=== PATIENT | female | born 1980 | race Caucasian/White ===

== ENCOUNTER 2023-10-08 07:44 | Outpatient (OUT) | payer OTHER, SELFPAY ==
[2023-10-08 08:25] LABS: Basophils Absolute Auto 0.1 10^3/uL (0.0-0.1); Basophils Percent Auto 1.4 % (0.2-2.0); Eosinophils Absolute Auto 0.3 10^3/uL (0.0-0.7); Eosinophils Percent Auto 3.3 % (0.9-7.0); Hematocrit 40.6 % (36.0-48.0); Hemoglobin 14.2 g/dL (12.0-16.0); Immature Granulocytes Abs Auto 0.03 10^3/uL (0.00-0.03); Immature Granulocytes Pct Auto 0.3 % (0.0-0.5); Lymphocytes Absolute Auto 2.4 10^3/uL (1.2-3.8); Lymphocytes Percent Auto 25.7 % (20.5-60.0); Mean Corpuscular Hemoglobin 31.7 pg (26.7-34.0); Mean Corpuscular Volume 90.6 fL (81.0-99.0); Mean Platelet Volume 8.6 fL (9.5-13.5); Monocytes Absolute Auto 0.7 10^3/uL (0.3-0.8); Neutrophils Absolute Auto 5.8 10^3/uL (1.4-6.5); Neutrophils Percent Auto 62.3 % (43.0-75.0); Platelet Count 307 10^3/uL (150-450); Red Blood Count 4.48 10^6/uL (4.20-5.40); Red Cell Distribution Width 11.4 % (11.0-15.0); White Blood Count 9.3 10^3/uL (4.0-11.0)
[2023-10-08 08:55] LABS: Alanine Aminotransferase 31 U/L (14-59); Albumin Level 3.8 g/dL (3.4-5.0); Alkaline Phosphatase 64 U/L (46-116); Anion Gap 13.4; Aspartate Amino Transferase 20 U/L (15-37); BUN Creatinine Ratio 10.5; Bilirubin Direct 0.1 mg/dL (0.0-0.2); Bilirubin Total 0.6 mg/dL (0.2-1.0); Calcium 8.9 mg/dL (8.5-10.1); Carbon Dioxide 29.1 mmol/L (21.0-32.0); Chloride 101 mmol/L (98-107); Chol HDL Ratio 3.8; Cholesterol 151 mg/dL (<=200); Estimated GFR (African America >60 (>=60); Estimated GFR (Non-African Ame 52 (>=60); Free T3 2.81 pg/mL (2.18-3.98); Globulin 3.9 g/dL; Glucose 94 mg/dL (74-106); HDL Cholesterol 40 mg/dL (40-60); LDL Cholesterol Calculated 86.2 mg/dL; Potassium 3.5 mmol/L (3.5-5.1); Sodium 140 mmol/L (136-145); Thyroid Stimulating Hormone 2.692 uIU/mL (0.358-3.740); Total Protein 7.7 g/dL (6.4-8.2); Triglycerides 124 mg/dL (<=150); VLDL CHOLESTEROL 24.8 mg/dL
[2023-10-08 09:57] LABS: Estimated Average Glucose 100 mg/dL; Glycohemoglobin A1C 5.1 % (4.5-6.2)
[2023-10-08 10:21] LABS: Free T4 1.07 ng/dL (0.76-1.46)
== END 2023-10-08 07:45 | disposition home or self-care (01) ==
LOC: LAB 07:50
PROVIDERS: PCP Family Medicine; Visit Provider Family Medicine
DX: Z00.00 Encounter for general adult medical examination without abnormal findings (principal); E55.9 Vitamin D deficiency, unspecified; E03.9 Hypothyroidism, unspecified
CPT/HCPCS: 36415; 80048; 80061; 80076; 82306; 83036; 84439; 84443; 84481; 85025

== ENCOUNTER 2023-12-09 15:55 | Outpatient (OUT) | payer OTHER, SELFPAY ==
--- NOTE | 2023-12-09 15:57 | MM_ITS ---
Patient Name: NATY BARR MR#: [id number] : 1980 Exam Date: 12/09/2023 Ordering Doctor: DR Car Drummond . RADIOLOGY REPORT PROCEDURE: MM TOMOSYNTHESIS SCREENING BI COMPARISON: MG MAMM SCREEN 3D PER CAD, 05/01/2021. MG MAMM SCREEN 3D PER CAD, 10/03/2022. INDICATIONS: Screening Calculator Name NCI Breast Cancer Risk Assessment Tool 5 Year Breast Cancer Risk 0.80% Lifetime Breast Cancer Risk 10.80% Personal Breast Cancer No Personal Ovarian Cancer No Treatments None Family Cancers Aunt-maternal with lung cancer at age 53. LOCATION: [facility] BREAST COMPOSITION: The breasts are heterogeneously dense,which may obscure small masses. FINDINGS: DIAGNOSTIC CATEGORY 2--BENIGN FINDING. NO CHANGE FROM COMPARISON. Scattered benign-appearing nodules are present. Scattered benign-appearing calcifications are present. Scattered benign-appearing lymph nodes are present. RIGHT BREAST: No significant suspicious finding. LEFT BREAST: No significant suspicious finding. RECOMMENDATIONS: ROUTINE MAMMOGRAM AND CLINICAL EVALUATION IN 12 MONTHS. PLEASE NOTE: A NORMAL MAMMOGRAM DOES NOT EXCLUDE THE POSSIBILITY OF BREAST CANCER. A CLINICALLY SUSPICIOUS PALPABLE LUMP SHOULD BE BIOPSIED. Dictated by: Satya Montes MD on 12/10/2023 at 08:45 Approved by: Satya Montes MD on 12/10/2023 at 08:46
== END 2023-12-09 15:56 | disposition home or self-care (01) ==
LOC: MAMMO 15:55
PROVIDERS: PCP Family Medicine; Visit Provider Family Medicine
DX: Z12.31 Encounter for screening mammogram for malignant neoplasm of breast (principal); Z80.1 Family history of malignant neoplasm of trachea, bronchus and lung
CPT/HCPCS: 77063; 77067

== ENCOUNTER 2024-05-11 11:08 | Outpatient (OUT) | payer OTHER, SELFPAY ==
--- OUTSIDE RECORDS SUMMARY | 2024-05-11 11:12 | XMS_ITS | CCD ---
Author Organization [facility] Care Team Providers Care Hr Recruiter Name Role Phone CAR ROBISON Primary Care Physician [phone] RENETTA RAHMAN Attending UnavailMD Ronak Flores. Primary Care Unavailable RENETTA RAHMAN Attending Unavailab zabrina ROBISON, DR CAR Anderson Admitting Unavailable RICKI, DR CAR Anderson Primary Care Unavailable RICKI, DR CAR Anderson Consulting Unavailable RICKI, DR CAR Anderson Attending Unavailable RICKI, DR CAR Anderson Primary Care Unavailable JESS, DR VIKASH Gtz Attending Unavailable JESS, DR VIKASH Gtz Admitting Unavailable LACEY, GLADYS Attending Unavailable LACEY, GLADYS Admitting Unavailable MCKAYEBJOSE, DR FLIP Blackburn Consulting Unavailable ROSS, RONAK ALVARENGA Primary Care Unavailable LACEY, GLADYS Consulting Unavailable MISC, DR ORR Attending Unavailable MISC, DR ORR Admitting Unavailable PINA, RONAK ALVARENGA Primary Care Unavailable MISC, DR ORR Consulting Unavailable RICKI, DR CAR Anderson Primary Care Unavailable ZIEBER, DR FLIP Blackburn Consulting Unavailable RICKI, DR CAR Anderson Attending Unavailable RICKI, DR CAR Anderson Admitting Unavailable RICKI, DR CAR Anderson Consulting Unavailable Car Robison MD Primary Care Provider [phone] CAR ROBISON Attending Unavailable ESTER LABOY Attending Unavailable RICKI, CAR Attending Unavailable Allergies Allergy Classification Reported Allergen(s) Allergy Type Date of Onset Reaction(s) Facility (2 sources) Pseudoephedrine Drug Allergy 3 [facility] Work Phone: (2 sources) Triprolidine Drug Allergy 3 Unknown [facility] Medications Current Medications Medication Drug Class(es) Dates Sig (Normalized) Sig (Original) 24 hr buPROPion hydrochloride 450 mg extended release oral tablet (5 sources) Aminoketone Start: 04-13-2024 take 1 tablet by mouth once daily buPROPion XL (Forfivo XL) 450 MG 24 hr tablet Indications: Major depressive disorder, recurrent episode, mild (HCC) (CMS/HCC) Take 1 tablet (450 mg) by mouth Daily 30 tablet 3 04/13/2024 Active Start: 04-13-2024 take 1 tablet by raul th once daily buPROPion XL (Forfivo XL) 450 MG 24 hr tablet Indications: Major depressive disorder, recurrent episode, mild (HCC) (CMS/HCC) Take 1 tablet (450 mg) by mouth Daily 30 tablet 3 04/13/2024 Active Start: 10-21-2023 End: 04-13-2024 take 1 tablet by mouth once daily buPROPion XL (Wellbutrin XL) 300 MG 24 hr tablet Indications: Major depressive disorder, recurrent episode, mild (HCC) (CMS/HCC) Take 1 tablet (300 mg) by mouth Daily 90 tablet 3 10/21/2023 04/13/2024 Discontinued (Reorder) Start: 04-24-2021 Wellbutrin SR Oral, BID, Refills(s) 0 Start Date: 04/24/21 Status: Ordered cholestyramine 4 g/5 g Oral Pwdr (1 source) Start: 07-20-2019 cholestyramine 4 g/5 g Oral Pwdr Oral, BID, Refill(s) 0 Start Date: 07/20/19 Status: Ordered cholestyramine resin 4000 mg powder for oral suspension (2 sources) Bile Acid Sequestrant Start: 01-19-2024 End: 01-18-2025 take 1 dose by mouth once daily cholestyramine (Questran) 4 g packet Indications: Gastroesophageal reflux disease without esophagitis Take 1 packet (4 g) by mouth Daily 30 packet 2 01/19/2024 01/18/2025 Active hydroCHLOROthiazide 25 mg oral tablet (3 sources) Thiazide Diuretic Start: 10-21-2023 take 1 tablet by mouth once daily hydroCHLOROthiazide (HYDRODiuril) 25 MG tablet Indications: H/O renal calculi Take 1 tablet (25 mg) by mouth Daily 90 tablet 3 10/21/2023 Active Start: 08-28-2022 End: 08-23-2023 take 1 tablet by mouth once daily hydrochlorothiazide 25 mg Tab 25 mg = 1 tab(s), Oral, Daily, X 90 day(s), # 90 tab(s), Refills(s) 3, Pharmacy: [facility]/pharmacy #[id number], 167, cm, 08/28/22 13:21:00 EST, Height/Length Dosing, 73.5, kg, 08/28/22 13:21:00 EST, Weight Dosing Start Date: 08/28/22 Stop Date: 08/23/23 Status: Ordered hydrOXYzine hydrochloride 10 mg oral tablet (2 sources) Antihistamine Start: 06-23-2023 take 1 tablet by mouth three times daily as needed hydrOXYzine HCl (Atarax) 10 MG tablet Indications: Anxiety disorder, unspecified , Anxiety state (CMS/HCC) TAKE 1 TABLET BY MOUTH THREE TIMES A DAY NEEDED 270 tablet 1 06/23/2023 Active levothyroxine sodium 0.05 mg oral tablet (3 sources) l-Thyroxine Start: 10-21-2023 take 1 tablet by mouth once daily levothyroxine (Synthroid, Levoxyl) 50 MCG tablet Indications: Acquired hypothyroidism (CMS/HCC) Take 1 tablet (50 mcg) by mouth Daily 90 tablet 3 10/21/2023 Active Start: 07-20-2019 take 1 tablet by raul once daily Synthroid 50 mcg Tab 50 microgram = 1 tab(s), Oral, Daily, # 30 tab(s), Refills(s) 0 Start Date: 07/20/19 Status: Ordered Multi Vitamin+ (1 source) Start: 07-20-2019 Multi Vitamin+ Daily, Refill(s) 0 Start Date: 07/20/19 Status: Ordered omeprazole 40 mg delayed release oral capsule (2 sources) Proton Pump Inhibitor Start: 07-20-2023 take 1 capsule by mouth once daily omeprazole (PriLOSEC) [address] capsule Indications: Gastro-esophageal reflux disease without esophagitis , Esophageal reflux TAKE 1 CAPSULE BY MOUTH EVERY DAY 90 capsule 3 07/20/2023 Active potassium citrate 10 meq extended release oral tablet (3 sources) Start: 10-21-2023 End: 04-13-2024 take 1 tablet by mouth once daily potassium citrate CR (Urocit-K-10) 10 mEq ER tablet Indications: H/O renal calculi Take 1 tablet (10 mEq) by mouth Daily 90 tablet 3 10/21/2023 04/13/2024 Discontinued (Reorder) Start: 08-28-2022 End: 08-23-2023 Urocit-K 10 mEq Tab-ER 10 mE q, 1 tab(s), Oral, Daily for 90 day(s), 90 tab(s), Refill(s) 3, [facility] #[id number], 167, cm, 08/28/22 13:21:00 EST, Height/Length Dosing, 73.5, kg, 08/28/22 13:21:00 EST, Weight Dosing Start Date: 08/28/22 Stop Date: 08/23/23 Status: Ordered triamcinolone acetonide 1 mg/ml topical cream (2 sources) Corticosteroid Start: 06-19-2023 triamcinolone (Kenalog) 0.1 % cream Indications: Other atopic dermatitis Apply to affected areas, up to twice a day when flared, do not use one the face, groin, or underarms, 30 day supply 30 g 11 06/19/2023 Active Completed/Discontinued Medications Medication Drug Class(es) Dates Sig (Normalized) Sig (Original) levonorgestrel 0.283667 mg/hr intrauterine system (1 source) Progestin, Progestin-containin g Intrauterine Device Start: 07-20-2019 Mirena 52 mg intrauteral device 52 mg = 1 EA, IntraUteral, Once, X 1 dose(s), # 1 EA, Refills(s) 0 Start Date: 07/20/19 Status: Ordered Problems Active Problems Problem Classification Problem Date Documented Date Episodic/Chronic Abdominal pain (1 source) Right lower quadrant pain 07-20-2019 Episodic Anxiety disorders (4 sources) Generalized anxiety disorder; Translations: [Generalized anxiety disorder] Onset: 10-09-2023 04-13-2024 Chronic Chronic kidney disease (4 sources) Chronic kidney disease stage 3A ; Translations: [Stage 3a chronic kidney disease (CKD) ([facility])] Onset: 10-09-2023 04-13-2024 Chronic Esophageal disorders (2 sources) Gastroesophageal reflux disease without esophagitis; Translations: [Gastro-esophageal reflux disease without esophagitis] Onset: 10-09-2023 10-09-2023 Chronic Genitourinary symptoms and ill-defined conditions (1 source) Shon hematuria 07-20-2019 Episodic Mood disorders (4 sources) Recurrent major depressive episodes, mild ; Translations: [Major depressive disorder, recurrent, mild] Onset: 10-09-2023 04-13-2024 Chronic Nutritional deficiencies (2 sources) Vitamin D deficiency; Translations: [Vitamin D deficiency, unspecified] Onset: 10-07-2023 10-07-2023 Chronic Other screening for suspected conditions (not mental disorders or infectious disease) (4 sources) Encounter for screening mammogram for malignant neoplasm of breast; Translations: [ENC SCR MAMMO MALIG NEOPLASM BREAST] Onset: 10-03-2022 Episodic Residual codes; unclassified (1 source) Family history of malignant neoplasm of trachea, bronchus and lung; Translations: [FAM HX MALIG NEOPLSM TRACH BRON LNG] Onset: 10-14-2022 Episodic Thyroid disorders (5 sources) Hypothyroidism, unspecified; Translations: [Acquired hypothyroidism] Onset: 09-20-2022 04-13-2024 Chronic Past or Other Problems Problem Classification Problem Date Documented Date Episodic/Chronic Calculus of urinary tract (9 sources) Kidney stone; Translations: [Calculus of kidney] Onset: 08-28-2022 Episodic Noninfectious gastroenteritis (2 sources) Chronic diarrhea; Translations: [Noninfective gastroenteritis and colitis, unspecified] Onset: 10-09-2023 10-09-2023 Episodic Results Test Name Value Interpretation Reference Range Facility MG MAMM SCREEN 3D PER CADon 10-03-2022 MG MAMM SCREEN 3D PER CAD Patient: HERMAN MOORE Exam Date: 10/03/2022 : 1980 Gender:F Ordering : DR CAR ROBISON . Admission #: [id number] Family : Order #: [id number] CLICK HERE TO VIEW EXAM RADIOLOGY REPORT PROCEDURE: MAMMOGRAM SCREENING 3D BILATERAL CAD COMPARISON: MG MAMM RT DIAG FU, 06/16/2019. MG MAMM SCREEN PER W CAD, 05/25/2019. MG MAMM SCREEN 3D PER CAD, 05/01/2021. INDICATIONS: Screening mammography Calculator Name NCI Breast Cancer Risk Assessment Tool 5 Year Breast Cancer Risk 0.70% Lifetime Breast Cancer Risk 11.00% Personal Breast Cancer No Personal Ovarian Cancer No Treatments None Family Cancers Aunt-maternal with lung cancer at age 53. LOCATION: [facility] BREAST COMPOSITION: Heterogeneously dense,which may obscure small masses. FINDINGS: DIAGNOSTIC CATEGORY 1--NEGATIVE. RIGHT BREAST: No significant suspicious finding. No significant change has occurred. LEFT BREAST: No significant suspicious finding. No significant change has occurred. RECOMMENDATIONS: ROUTINE MAMMOGRAM AND CLINICAL EVALUATION IN 12 MONTHS. PLEASE NOTE: A NORMAL MAMMOGRAM DOES NOT EXCLUDE THE POSSIBILITY OF BREAST CANCER. A CLINICALLY SUSPICIOUS PALPABLE LUMP SHOULD BE BIOPSIED. Dictated by: Flip Gatica M.D. on 10/04/2022 at 07:08 Approved by: Flip Gatica M.D. on 10/04/2022 at 07:11 Normal [facility] CBC AUTO DIFFon 09-17-2022 BASO # 0.1 103/ul Normal 0.0-0.1 [facility] Comment on above: Performed By: #### C BC #### [facility] [address] [place] [address] Dr. Clara Frye Basophils/100 WBC (Bld) 1.3 % Normal 0.2-2.0 [facility] Comment on above: Performed By: #### C BC #### [facility] [address] [place] [address] Dr. Clara Frye EO # 0.3 103/ul Normal 0.0-0.7 [facility] Comment on above: Performed By: #### C BC #### [facility] [address] [place] [address] Dr. Clara Frye Eosinophils/100 WBC (Bld) 4.3 % Normal 0.9-7.0 [facility] Comment on above: Performed By: #### C BC #### [facility] [address] [place] [address] Dr. Clara Frye Erythrocyte distribution width (RBC) [Ratio] 11.8 % Normal 11.0-15.0 [facility] Comment on above: Performed By: #### C BC #### [facility] [address] [place] [address] Dr. Clara Frye Hematocrit (Bld) [Volume fraction] 40.5 % Normal 36.0-48.0 [facility] Comment on above: Performed By: #### C BC #### [facility] [address] [place] [address] Dr. Clara Frye Hemoglobin (Bld) [Mass/Vol] 14.4 g/dL Normal 12.0-16.0 [facility] Comment on above: Performed By: #### C BC #### [facility] [address] [place] [address] Dr. Clara Frye IG # 0.05 10e3/ul Critically high 0.00-0.03 [facility] Comment on above: Performed By: #### C BC #### [facility] [address] [place] [address] Dr. Clara Frye IG % 0.6 % Critically high 0.0-0.5 [facility] Comment on above: Performed By: #### C BC #### [facility] [address] [place] [address] Dr. Clara Frye LYMPH # 2.1 103/ul Normal 1.2-3.8 [facility] Comment on above: Performed By: #### C BC #### [facility] [address] [place] [address] Dr. Clara Frye Lymphocytes/100 WBC (Bld) 26.6 % Normal 20.5-60.0 [facility] Comment on above: Performed By: #### C BC #### [facility] [address] [place] [address] Dr. Clara Frye MANUAL DIFF REQ NO Normal [facility] Comment on above: Performed By: #### C BC #### [facility] [address] [place] [address] Dr. Clara Frye MCH (RBC) [Entitic mass] 31.8 pg Normal 26.7-34.0 [facility] Comment on above: Performed By: #### C BC #### [facility] [address] [place] [address] Dr. Clara Frye MCHC (RBC) [Mass/Vol] 35.6 g/dL Critically high 29.9-35.2 [facility] Comment on above: Performed By: #### C BC #### [facility] [address] [place] [address] Dr. Clara Frye MCV (RBC) [Entitic vol] 89.4 fL Normal 81.0-99.0 [facility] Comment on above: Performed By: #### C BC #### [facility] [address] [place] [address] Dr. Clara Frye MONO # 0.8 103/ul Normal 0.3-0.8 [facility] Comment on above: Performed By: #### C BC #### [facility] [address] [place] [address] Dr. Clara Frye Monocytes/100 WBC (Bld) 9.4 % Normal 1.7-12.0 [facility] Comment on above: Performed By: #### C BC #### [facility] [address] [place] [address] Dr. Clara Frye NEUT # 4.6 103/ul Normal 1.4-6.5 [facility] Comment on above: Performed By: #### C BC #### [facility] [address] [place] [address] Dr. Clara Frye Neutrophils/100 WBC (Bld) 57.8 % Normal 43.0-75.0 [facility] Comment on above: Performed By: #### C BC #### [facility] [address] [place] [address] Dr. Clara Frye Platelet mean volume (Bld) [Entitic vol] 8.5 fL Critically low 9.5-13.5 [facility] Comment on above: Performed By: #### C BC #### [facility] [address] [place] [address] Dr. Clara Frye PLT 285 103/ul Normal 150-450 [facility] Comment on above: Performed By: #### C BC #### [facility] [address] [place] [address] Dr. Clara Frye RBC 4.53 106/ul Normal 4.20-5.40 [facility] Comment on above: Performed By: #### C BC #### [facility] [address] [place] [address] Dr. Clara Frye WBC 7.9 103/ul Normal 4.0-11.0 [facility] Comment on above: Performed By: #### C BC #### [facility] [address] [place] [address] Dr. Clara Frye FREE T3on 09-17-2022 FREE T3 2.40 pg/mlL Normal 2.18-3.98 [facility] Comment on above: Performed By: #### V ITAD, FT4 #### [facility] [address] [place] [address] Dr. Clara Frye FREE T4on 09-17-2022 Free T4 [Mass/Vol] 0.89 ng/dL Normal 0.76-1.46 [facility] Comment on above: Performed By: #### V ITSIDNEY, FT4 #### [facility] [address] [place] [address] Dr. Clara Frye GLYCOHEMOGLOBIN A1Con 2022 ADA RECOMMENDATION SEE BELOW Normal [facility] Comment on above: Result Comment: ADA RECOMMENDED LIMIT 4.0 - 6.0 ADA THERAPEUTIC TARGET < 7.0 ACTION SUGGESTED > 7.0 Performed By: #### A 1C #### [facility] [address] [place] [address] Dr. Clara Frye Glucose [Mass/Vol] 97 mg/dL Normal [facility] Comment on above: Performed By: #### A 1C #### [facility] [address] [place] [address] Dr. Clara Frye HbA1c (Bld) [Mass fraction] 5.0 % Normal 4.5-6.2 [facility] Comment on above: Performed By: #### A 1C #### [facility] [address] [place] [address] Dr. Clara Frye LIPID PROFILEon 09-17-2022 CHOL-HDL RATIO NORM SEE BELOW Normal [facility] Comment on above: Result Comment: 3.3 - 4.4 LOW RISK 4.4 - 7.1 AVERAGE RISK 7.1 - 11.0 MODERATE RISK >11.0 HIGH RISK Performed By: #### B MP, LIVER, FT3, TSH, LIPID #### [facility] [address] [place] [address] Dr. Clara Frye Cholesterol [Mass/Vol] 154 mg/dL Normal <=200 [facility] Comment on above: Performed By: #### B MP, LIVER, FT3, TSH, LIPID #### [facility] [address] [address] [address] Clara Frye Cholesterol in HDL [Mass/Vol] 37 mg/dL Critically low 40-60 [facility] Comment on above: Performed By: #### B MP, LIVER, FT3, TSH, LIPID #### [facility] [address] [address] [address] Clara Frye Cholesterol in LDL [Mass/Vol] 84.4 mg/dL Normal [facility] Comment on above: Performed By: #### B MP, LIVER, FT3, TSH, LIPID #### [facility] [address] [address] [address] Clara Frye Cholesterol.total/Ch olesterol in HDL [Mass ratio] 4.2 {ratio} Normal [facility] Comment on above: Performed By: #### B MP, LIVER, FT3, TSH, LIPID #### [facility] [address] [address] [address] Clara Frye HDL NORMAL > or = 60 mg/dl - LO W CARDIOVASCULAR RISK <40 mg/dl - HIGH CARDIOVASCULAR RISK Normal [facility] Comment on above: Performed By: #### B MP, LIVER, FT3, TSH, LIPID #### [facility] [address] [address] [address] Clara Frye LDL CALC NORMAL SEE BELOW Normal [facility] Comment on above: Result Comment: <100 mg/dl OPTIMAL 100 - 129 mg/dl NEAR OR ABOVE OPTIMAL 130 - 159 mg/dl BORDERLINE HIGH 160 - 189 mg/dl HIGH >190 mg/dl VERY HIGH Performed By: #### B MP, LIVER, FT3, TSH, LIPID #### [facility] [address] [address] [address] Clara Frye Triglyceride [Mass/Vol] 163 mg/dL Critically high <=150 [facility] Comment on above: Performed By: #### B MP, LIVER, FT3, TSH, LIPID #### [facility] [address] [place] [address] Dr. Clara Frye VLDL CALC 32.6 mg/dL Normal [facility] Comment on above: Performed By: #### B MP, LIVER, FT3, TSH, LIPID #### [facility] [address] [address] [address] Clara Frye LIVER PROFILEon 09-17-2022 Albumin [Mass/Vol] 3.9 g/dL Normal 3.4-5.0 [facility] Comment on above: Performed By: #### B MP, LIVER, FT3, TSH, LIPID #### [facility] [address] [place] [address] Dr. Clara Frye Albumin/Globulin [Mass ratio] 1.0 {ratio} Normal [facility] Comment on above: Performed By: #### B MP, LIVER, FT3, TSH, LIPID #### [facility] [address] [place] [address] Dr. Clara Frye ALP [Catalytic activity/Vol] 60 U/L Normal 46-116 [facility] Comment on above: Performed By: #### B MP, LIVER, FT3, TSH, LIPID #### [facility] [address] [place] [address] Dr. Clara Frye ALT [Catalytic activity/Vol] 35 U/L Normal 14-59 [facility] Comment on above: Performed By: #### B MP, LIVER, FT3, TSH, LIPID #### [facility] [address] [place] [address] Dr. Clara Frye AST [Catalytic activity/Vol] 25 U/L Normal 15-37 [facility] Comment on above: Performed By: #### B MP, LIVER, FT3, TSH, LIPID #### [facility] [address] [place] [address] Dr. Clara Frye BILI, CONJUGATED 0.1 mg/dL Normal 0.0-0.2 [facility] Comment on above: Performed By: #### B MP, LIVER, FT3, TSH, LIPID #### [facility] [address] [place] [address] Dr. Clara Frye Bilirubin [Mass/Vol] 0.5 mg/dL Normal 0.2-1.0 [facility] Comment on above: Performed By: #### B MP, LIVER, FT3, TSH, LIPID #### [facility] [address] [place] [address] Dr. Clara Frye Globulin (S) [Mass/Vol] 3.9 g/dL Normal [facility] Comment on above: Performed By: #### B MP, LIVER, FT3, TSH, LIPID #### [facility] [address] [place] [address] Dr. Clara Frye Protein [Mass/Vol] 7.8 g/dL Normal 6.4-8.2 [facility] Comment on above: Performed By: #### B MP, LIVER, FT3, TSH, LIPID #### [facility] [address] [place] [address] Dr. Clara Frye PROF CHEM 8 (BAS METB)on Anion gap [Moles/Vol] 10.6 mmol/L Normal [facility] Comment on above: Performed By: #### B MP, LIVER, FT3, TSH, LIPID #### [facility] [address] [place] [address] Dr. Clara Frye Calcium [Mass/Vol] 9.5 mg/dL Normal 8.5-10.1 [facility] Comment on above: Performed By: #### B MP, LIVER, FT3, TSH, LIPID #### [facility] [address] [place] [address] Dr. Clara Frye Chloride [Moles/Vol] 103 mmol/L Normal 98-107 [facility] Comment on above: Performed By: #### B MP, LIVER, FT3, TSH, LIPID #### [facility] [address] [place] [address] Dr. Clara Frye CO2 [Moles/Vol] 30.3 mmol/L Normal 21.0-32.0 [facility] Comment on above: Performed By: #### B MP, LIVER, FT3, TSH, LIPID #### [facility] [address] [address] [address] Clara Frye Creatinine [Mass/Vol] 0.99 mg/dL Normal 0.55-1.02 [facility] Comment on above: Performed By: #### B MP, LIVER, FT3, TSH, LIPID #### [facility] [address] [address] [address] Clara Frye EGFR-AF ARGENTINE >60 Normal >=60 [facility] Comment on above: Performed By: #### B MP, LIVER, FT3, TSH, LIPID #### [facility] [address] [address] [address] Clara Frye EGFR-NON AF ARGENTINE >60 Normal >=60 [facility] Comment on above: Performed By: #### B MP, LIVER, FT3, TSH, LIPID #### [facility] [address] [address] [address] Clara Frye Glucose [Mass/Vol] 93 mg/dL Normal 74-106 [facility] Comment on above: Performed By: #### B MP, LIVER, FT3, TSH, LIPID #### [facility] [address] [address] [address] Clara Frye Potassium [Moles/Vol] 3.9 mmol/L Normal 3.5-5.1 [facility] Comment on above: Performed By: #### B MP, LIVER, FT3, TSH, LIPID #### [facility] [address] [address] [address] Clara Frye Sodium [Moles/Vol] 140 mmol/L Normal 136-145 [facility] Comment on above: Performed By: #### B MP, LIVER, FT3, TSH, LIPID #### [facility] [address] [address] [address] Clara Frye Urea nitrogen [Mass/Vol] 15.0 mg/dL Normal 7.0-18.0 [facility] Comment on above: Performed By: #### B MP, LIVER, FT3, TSH, LIPID #### [facility] [address] [address] [address] Clara Frye Urea nitrogen/Creatinine [Mass ratio] 15.2 mg/mg Normal [facility] Comment on above: Performed By: #### B MP, LIVER, FT3, TSH, LIPID #### [facility] [address] [address] [address] Clara Frye TSHon 09-17-2022 TSH 1.463 uIU/mL Normal 0.358-3.740 [facility] Comment on above: Performed By: #### V ITAD, FT4 #### [facility] [address] [address] [address] Clara Frye VITAMIN D 25 OHon 09-17-2022 VIT D 25-OH 28.7 ng/mL Normal [facility] Comment on above: Performed By: #### V ITAD, FT4 #### [facility] [address] [place] [address] Dr. Clara Frye VIT D RANGES SEE BELOW Normal [facility] Comment on above: Result Comment: <20 ng/mL Vit D deficient 20 - <30 ng/mL Vit D insufficient 30 - 100 ng/mL Vit D sufficient >100 ng/mL Potential Toxicity Performed By: #### V ITAD, FT4 #### [facility] [address] [address] [address] [facility] [id number] 2050 [id number]: 127 Normal [facility] Ambulatory Visit Summaryon 0 08-28-2022 Ambulatory Visit Summary HERMAN MOORE :1980 Visit Date:08/28/2022 Ambulatory Visit Instructions Your Diagnosis Kidney stone Your Care Team Attending Physician - GLADYS RAHMAN PA-C Primary Care Physician - CAR ROBISON MD This Is Your Medications List hydrochlorothiazide (hydrochlorothiazide 25 mg oral tablet) potassium citrate (Urocit-K 10 mEq Tab-ER) Contact prescribing physician if questions or concerns buPROPion (Wellbutrin SR) cholestyramine (cholestyramine 4 g/5 g Oral Pwdr) levonorgestrel (Mirena 52 mg intrauteral device) levothyroxine (Synthroid 50 mcg Tab) multivitamin (Multi Vitamin+) Procedures Performed Cystoscopy (07/28/2019), ESWL - Extracorporeal shockwave lithotripsy for renal calculus (09/23/2016), Cystoscopy (08/23/2015), Aspiration of ectopic from fallopian tube, Bilateral tubal ligation, Cholecystectomy. Discharge Vitals Height 167 cm Height 66 in Weight 73.5 kg Weight 161.7 lb BMI 26.35 What to do next You Need to Schedule the Following Appointments Follow Up with LACEY JACKSON, MEDINA ÁLVAREZ When: Where: [address] [facility] [place] [address] Medications What How Much When Instructions Unchanged hydrochlorothiazide (hydrochlorothiazide 25 mg oral tablet) 1 Tablets By Mouth Every day Unchanged potassium citrate (Urocit-K 10 mEq Tab-ER) 1 Tablets By Mouth Every day Unchanged buPROPion (Wellbutrin SR) By Mouth 2 times a day Contact prescribing physician if questions or concerns Unchanged cholestyramine (cholestyramine 4 g/ 5 g Oral Pwdr) By Mouth 2 times a day Contact prescribing physician if questions or concerns Unchanged levonorgestrel (Mirena 52 mg intrauteral device) 1 Each Intrauteral Once Duration: 1 Doses Contact prescribing physician if questions or concerns Unchanged levothyroxine (Synthroid 50 mcg Tab) 1 Tablets By Mouth Every day Contact prescribing physician if questions or concerns Unchanged multivitamin (Multi Vitamin+) Every day Contact prescribing physician if questions or concerns Allergies No Known Allergies Problems Ongoing - Any problem that you are currently receiving treatment for. Gross hematuria Kidney stone Right lower quadrant pain Education Materials Dietary Guidelines to Help Prevent Kidney Stones Kidney stones are deposits of minerals and salts that form inside your kidneys. Your risk of developing kidney stones may be greater depending on your diet, your lifestyle, the medicines you take, and whether you have certain medical conditions. Most people can reduce their chances of developing kidney stones by following the instructions below. Depending on your overall health and the type of kidney stones you tend to develop, your dietitian may give you more specific instructions. What are tips for following this plan? Reading food labels ? Choose foods with no salt added or low-salt labels. Limit your sodium intake to less than 1500 mg per day. ? Choose foods with calcium for each meal and snack. Try to eat about 300 mg of calcium at each meal. Foods that contain 200?500 mg of calcium per serving include: ? 8 oz (237 ml) of milk, fortified nondairy milk, and fortified fruit juice. ? 8 oz (237 ml) of kefir, yogurt, and soy yogurt. ? 4 oz (118 ml) of tofu. ? 1 oz of cheese. ? 1 cup (300 g) of dried figs. ? 1 cup (91 g) of cooked broccoli. ? 1?3 oz can of sardines or mackerel. ? Most people need 1000 to 1500 mg of calcium each day. Talk to your dietitian about how much calcium is recommended for you. Shopping ? Buy plenty of fresh fruits and vegetables. Most people do not need to avoid fruits and vegetables, even if they contain nutrients that may contribute to kidney stones. ? When shopping for convenience foods, choose: ? Whole pieces of fruit. ? Premade salads with dressing on the side. ? Low-fat fruit and yogurt smoothies. ? Avoid buying frozen meals or prepared deli foods. ? Look for foods with live cultures, such as yogurt and kefir. Cooking ? Do not add salt to food when cooking. Place a salt shaker on the table and allow each person to add his or her own salt to taste. ? Use vegetable protein, such as beans, textured vegetable protein (TVP), or tofu instead of meat in pasta, casseroles, and soups. Meal planning ? Eat less salt, if told by your dietitian. To do this: ? Avoid eating processed or premade food. ? Avoid eating fast food. ? Eat less animal protein, including cheese, meat, poultry, or fish, if told by your dietitian. To do this: ? Limit the number of times you have meat, poultry, fish, or cheese each week. Eat a diet free of meat at least 2 days a week. ? Eat only one serving each day of meat, poultry, fish, or seafood. ? When you prepare animal protein, cut pieces into small portion sizes. For most meat and fish, one serving is about the size of one deck of (more content not included)... Normal [facility] Patient Educationon 02-15-20 23 Patient Education Urology Dietary Guidelines to Help Prevent Kidney Stones Kidney stones are deposits of minerals and salts that form inside your kidneys. Your risk of developing kidney stones may be greater depending on your diet, your lifestyle, the medicines you take, and whether you have certain medical conditions. Most people can reduce their chances of developing kidney stones by following the instructions below. Depending on your overall health and the type of kidney stones you tend to develop, your dietitian may give you more specific instructions. What are tips for following this plan? Reading food labels ? Choose foods with no salt added or low-salt labels. Limit your sodium intake to less than 1500 mg per day. ? Choose foods with calcium for each meal and snack. Try to eat about 300 mg of calcium at each meal. Foods that contain 200?500 mg of calcium per serving include: ? 8 oz (237 ml) of milk, fortified nondairy milk, and fortified fruit juice. ? 8 oz (237 ml) of kefir, yogurt, and soy yogurt. ? 4 oz (118 ml) of tofu. ? 1 oz of cheese. ? 1 cup (300 g) of dried figs. ? 1 cup (91 g) of cooked broccoli. ? 1?3 oz can of sardines or mackerel. ? Most people need 1000 to 1500 mg of calcium each day. Talk to your dietitian about how much calcium is recommended for you. Shopping ? Buy plenty of fresh fruits and vegetables. Most people do not need to avoid fruits and vegetables, even if they contain nutrients that may contribute to kidney stones. ? When shopping for convenience foods, choose: ? Whole pieces of fruit. ? Premade salads with dressing on the side. ? Low-fat fruit and yogurt smoothies. ? Avoid buying frozen meals or prepared deli foods. ? Look for foods with live cultures, such as yogurt and kefir. Cooking ? Do not add salt to food when cooking. Place a salt shaker on the table and allow each person to add his or her own salt to taste. ? Use vegetable protein, such as beans, textured vegetable protein (TVP), or tofu instead of meat in pasta, casseroles, and soups. Meal planning ? Eat less salt, if told by your dietitian. To do this: ? Avoid eating processed or premade food. ? Avoid eating fast food. ? Eat less animal protein, including cheese, meat, poultry, or fish, if told by your dietitian. To do this: ? Limit the number of times you have meat, poultry, fish, or cheese each week. Eat a diet free of meat at least 2 days a week. ? Eat only one serving each day of meat, poultry, fish, or seafood. ? When you prepare animal protein, cut pieces into small portion sizes. For most meat and fish, one serving is about the size of one deck of cards. ? Eat at least 5 servings of fresh fruits and vegetables each day. To do this: ? Keep fruits and vegetables on hand for snacks. ? Eat 1 piece of fruit or a handful of berries with breakfast. ? Have a salad and fruit at lunch. ? Have two kinds of vegetables at dinner. ? Limit foods that are high in a substance called oxalate. These include: ? Spinach. ? Rhubarb. ? Beets. ? Potato chips and tunisian fries. ? Nuts. ? If you regularly take a diuretic medicine, make sure to eat at least 1?2 fruits or vegetables high in potassium each day. These include: ? Avocado. ? Banana. ? Duchesne, prune, carrot, or tomato juice. ? Baked potato. ? Cabbage. ? Beans and split peas. General instructions ? Drink enough fluid to keep your urine clear or pale yellow. This is the most important thing you can do. ? Talk to your health care provider and dietitian about taking daily supplements. Depending on your health and the cause of your kidney stones, you may be advised: ? Not to take supplements with vitamin C. ? To take a calcium supplement. ? To take a daily probiotic supplement. ? To take other supplements such as magnesium, fish oil, or vitamin B6. ? Take all medicines and supplements as told by your health care provider. ? Limit alcohol intake to no more than 1 drink a day for non women and 2 drinks a day for men. One drink equals 12 oz of beer, 5 oz of wine, or 1? oz of hard liquor. ? Lose weight if told by your health care provider. Work with your dietitian to find strategies and an eating plan that works best for you. What foods are not recommended? Limit your intake of the following foods, or as told by your dietitian. Talk to your dietitian about specific foods you should avoid based on the type of kidney stones and your overall health. Grains Breads. Bagels. Rolls. Baked goods. Salted crackers. Cereal. Pasta. Vegetables Spinach. Rhubarb. Beets. Canned vegetables. Pickles. Olives. Meats and other protein foods Nuts. Nut butters. Large portions of meat, poultry, or fish. Salted or cured meats. Deli meats. Hot dogs. Sausages. Dairy Cheese. Beverages Regular soft drinks. Regular vegetable juice. Seasonings and other foods Seasoning blends with salt. Salad dr (more content not included)... Normal [facility] Urology Office/Clinic Noteon 08-28-2022 Urology Office/Clinic Note Chief Complaint 1yr HPI Staff DLS pt here for 1yr f/u to Kidney Stone. KUb done 08/28/22 @ [facility] *HCTZ 25mg QD & Urocit K 10meq QD therapy. Last Potassium level checked 05/18/22- 3.8 Denies any current signs/symptoms of Kidney Stone. Denies any urinary complaints at this time. History of Present Illness staff HPI reviewed and agree. Review of Systems PHQ Score Initial Depression Screen Score: 0 no fever, chills, malaise, myalgia. no rash/lesions. no chest pain, palpitations, or SOB. no abdominal pain, nausea, vomiting. no unilateral calf swelling, redness, pain Physical Exam Vitals & Measurements HT: 66 in HT: 167 cm WT: 73.5 kg WT: 161.7 lb BMI: 26.35 General: nontoxic, NAD Mouth: moist mucosa Lungs: normal respiratory effort Cardio: regular rate, good distal perfusion Abdomen: nondistended, no suprapubic distention or tenderness, no CVA tenderness Neurologic: Grossly normal Skin: No rashes or suspicious lesions Assessment/Plan DLS pt. 1. Kidney stone (N20.0: Calculus of kidney) S/p Rt. stone manip done 07/28/19. KUB done 04/19/21 shows negative for any visible urinary tract calculi. KUB done 08/28/22 at [facility] shows no visible urinary tract calculi. Last Potassium level checked 05/18/22 - 3.8. No sample provided for UA today. Pt continues taking HCTZ 25 mg QD and Urocit-K 10 mEq QD. Denies any stone signs/sxs since prior encounter. Denies any urinary complaints at this time. Discussed following up PRN and having PCP refill meds. It PCP willing to refill meds, pt will f/u with our office PRN. Follow up 1 year or sooner if needed. Pt understands and agrees with plan. Refills sent to [facility]. -cont meds above Follow-up With When Contact Information LACEY JACKSON, GLADYS Farrell, URL [address] [facility] [place] [address] Additional Instructions: f/u 1 yr no labs Patient Education Dietary Guidelines to Help Prevent Kidney Stones Documentation recorded by the evangelistibtesfaye Mittal accurately reflects the services(s) I performed and decisions made by me. Authenticated by Gladys Rahman PA-C on 08/28/2022 14:03:18. I, Minerva Mittal, personally scribed for PENNY Allison on 08/28/2022 13:42:33. . Problem List/Past Medical History Ongoing Gross hematuria Kidney stone Right lower quadrant pain Historical No qualifying data Procedure/Surgical History Cystoscopy (07/28/2019), ESWL - Extracorporeal shockwave lithotripsy for renal calculus (09/23/2016), Cystoscopy (08/23/2015), Aspiration of ectopic from fallopian tube, Bilateral tubal ligation, Cholecystectomy. Medications cholestyramine 4 g/5 g Oral Pwdr, Oral, BID hydrochlorothiazide 25 mg oral tablet, 25 mg= 1 tab(s), Oral, Daily, 11 refills Mirena 52 mg intrauteral device, 52 mg= 1 EA, IntraUteral, Once Multi Vitamin+, Daily Synthroid 50 mcg Tab, 50 mcg= 1 tab(s), Oral, Daily Urocit-K 10 mEq Tab-ER, 10 mEq= 1 tab(s), Oral, Daily, 3 refills Wellbutrin SR, Oral, BID Allergies No Known Allergies Social History Alcohol - Denies Alcohol Use, 07/20/2019 Substance Abuse - Denies Substance Abuse, 07/20/2019 Tobacco - Denies Tobacco Use, 07/20/2019 Never (less than 100 in lifetime) Tobacco Use:. Never Smokeless Tobacco Use:., 08/28/2022 Family History Diabetes mellitus type 2: Grandparent. Heart disease: Father. Immunizations Vaccine Date Status SARS-CoV-2 (COVID-19) mRNA-1273 vaccine 05/09/2021 Recorded SARS-CoV-2 (COVID-19) mRNA-1273 vaccine 08/09/2020 Recorded SARS-CoV-2 (COVID-19) mRNA-1273 vaccine 07/12/2020 Recorded influenza virus vaccine, inactivated 04/21/2018 Recorded influenza virus vaccine, inactivated 04/16/2017 Recorded influenza virus vaccine, inactivated 05/06/2016 Recorded hepatitis B pediatric vaccine 06/29/1999 Recorded hepatitis B pediatric vaccine 11/15/1998 Recorded Td(adult) unspecified formulation 10/13/1998 Recorded hepatitis B pediatric vaccine 10/13/1998 Recorded measles/mumps/rubella virus vaccine 08/01/1992 Recorded diphtheria/pertussis,[place] l/tetanus/polio 03/04/1986 Recorded diphtheria/pertussis,[place] l/tetanus/polio 05/11/1982 Recorded measles/mumps/rubella virus vaccine 02/02/1982 Recorded diphtheria/pertussis,[place] l/tetanus/polio 05/13/1981 Recorded diphtheria/pertussis,[place]qu[place] l/tetanus/polio 03/11/1981 Recorded diphtheria/pertussis,shaqu[place] l/tetanus/polio 1980 Recorded Normal [facility] Comment on above: Result Comment: Elec tronically Signed By: GLADYS RAHMAN PA-C\.br\Date and Time Signed: 08/28/22 14:03 EST\.br\Electronically Co-Signed By: Minerva Mittla\.br\Date and Time Co-Signed: 08/28/22 13:42 EST XR KUB 1 VIEWon 08-28-2022 XR KUB 1 VIEW EXAMINATION: XR KUB 1 VIEW HISTORY: Kidney stone COMPARISON: XR KUB 04/19/2021 FINDINGS: KIDNEY/URETER - RIGHT: No visible renal or ureteral calcifications. KIDNEY/URETER - LEFT: No visible renal or ureteral calcifications. PELVIS: No visible ureteral stones. Stable small left lower pelvis calcification compatible with a phlebolith. BOWEL: No abnormal dilation or deviation. BONES: No acute abnormality. OTHER: IUD within midline pelvis and reasonable position. Bilateral fallopian tube occlusive devices. IMPRESSION: 1. No visible urinary tract calculi. Electronically authenticated by: FLIP GATICA Date: 2022-08-28 09:50 Normal [facility] Lab Reportson 05-21-2022 Lab Reports [id number]: 127 Normal [facility] PROF CHEM 8 (BAS METB)on Anion gap [Moles/Vol] 8.1 mmol/L Normal [facility] Comment on above: Performed By: #### B MP #### [facility] [address] [place] [address] Dr. Clara Frye Calcium [Mass/Vol] 9.4 mg/dL Normal 8.5-10.1 [facility] Comment on above: Performed By: #### B MP #### [facility] [address] [address] [address] Clara Frye Chloride [Moles/Vol] 103 mmol/L Normal 98-107 [facility] Comment on above: Performed By: #### B MP #### [facility] [address] [address] [address] Clara Frye CO2 [Moles/Vol] 30.7 mmol/L Normal 21.0-32.0 [facility] Comment on above: Performed By: #### B MP #### [facility] [address] [address] [address] Clara Frye Creatinine [Mass/Vol] 1.05 mg/dL Critically high 0.55-1.02 [facility] Comment on above: Performed By: #### B MP #### [facility] [address] [address] [address] Clara Frye EGFR-AF ARGENTINE >60 Normal >=60 [facility] Comment on above: Performed By: #### B MP #### [facility] [address] [address] [address] Clara Frye EGFR-NON AF ARGENTINE 58 mL/min/1.73m2 Critically low >=60 [facility] Comment on above: Performed By: #### B MP #### [facility] [address] [address] [address] Clara Frye Glucose [Mass/Vol] 97 mg/dL Normal 74-106 [facility] Comment on above: Performed By: #### B MP #### [facility] [address] [address] [address] Clara Frye Potassium [Moles/Vol] 3.8 mmol/L Normal 3.5-5.1 [facility] Comment on above: Performed By: #### B MP #### [facility] [address] [address] [address] Clara Frye Sodium [Moles/Vol] 138 mmol/L Normal 136-145 [facility] Comment on above: Performed By: #### B MP #### [facility] [address] [address] [address] Clara Frye Urea nitrogen [Mass/Vol] 14.0 mg/dL Normal 7.0-18.0 [facility] Comment on above: Performed By: #### B MP #### [facility] [address] [place] [address] Dr. Clara Frye Urea nitrogen/Creatinine [Mass ratio] 13.3 mg/mg Normal [facility] Comment on above: Performed By: #### B MP #### [facility] [address] [address] [address] Clara Frye Vital Signs Date Time Vital Sign Value Performing Clinician Faci lity 04-13-2024 13: Body height 167.6 cm Car Robison MD Work Phone: [facility] 04-13-2024 13:14040 Body mass index (BMI) [Ratio] 28.73 kg/m2 Car Robison MD Work Phone: [facility] 04-13-2024 13:14040 Body temperature 97.5 [degF] Car Robison MD Work Phone: [facility] 04-13-2024 13:14-0400 Body weight 80.74 kg Car Robison MD Work Phone: [facility] 04-13-2024 13:14-0400 Diastolic blood pressure 58 mm[Hg] Car Robison MD Work Phone: [facility] 04-13-2024 13:14-0400 Heart rate 122 /min Car Robison MD Work Phone: [facility] 04-13-2024 13:14-0400 Respiratory rate 22 /min Car Robison MD Work Phone: [facility] 04-13-2024 13:14-0400 SaO2% (BldA) [Mass fraction] 98 % Car Robison MD Work Phone: [facility] 04-13-2024 13:14-0400 Systolic blood pressure 120 mm[Hg] Car Robison MD Work Phone: [facility] Healthcare Encounters Encounter Date Encounter Type Care Provider Facility Start: 04-13-2024 End: 04-13-2024 ambulatory CAR ROBISON Not Available Start: 04-13-2024 End: 04-13-2024 Office outpatient visit 25 minutes Car Robison MD Work Phone: [facility] Comment on above: Generalized anxiety disorder (CMS/HCC) (Primary Dx); Major depressive disorder, recurrent episode, mild (HCC) (CMS/HCC); Acquired hypothyroidism (CMS/HCC); Stage 3a chronic kidney disease (CKD) (CMS/HCC) Start: 10-09-2023 End: 10-09-2023 ambulatory CAR ROBISON Not Available Start: 10-07-2023 Patient encounter procedure Car Robison MD Work Phone: [facility] Healthcare Start: 09-03-2023 ambulatory RENETTA RAHMAN Facility:[facility] Start: 06-19-2023 End: 06-19-2023 ambulatory ESTER LABOY Not Available Start: 10-30-[address] CAR ROBISON Facil ity:[facility] Start: 10-03-2022 End: 10-04-[address] CAR ROBISON Facility:[facility] Start: 09-20-2022 Encounter for genera l adult medical examination without abnormal findings DR CAR ROBISON [facility] Start: 09-17-2022 End: 09-18-[address] CAR ROBISON Facility:[facility] Start: 09-17-2022 End: 09-18-2022 Encounter for general adult medical examination without abnormal findings DR CAR ROBISON Facility:[facility] Start: 08-28-2022 End: 08-29-2022 ambulatory PA-C GLADYS RAHMAN Facility:[facility] Start: 08-28-2022 End: 08-28-2022 Patient encounter procedure GLADYS RAHMAN [facility] Start: 08-28-2022 End: 08-29-2022 ambulatory GLADYS RAHMAN Facility:[facility] Start: 05-18-2022 End: 05-19-[address] DOCTOR LAWSON Facility:[facility] Procedures Date Procedure Procedure Detail Performing Clinician Start: 12-10-2023 Mammography Car boss MD Work Phone: Start: 07-28-2019 Cystoscopy GLADYS DOWLING Comment on above: BL RG, ureteroscopic stone extraction Start: 09-23-2016 Extracorporeal shock wave lithotripsy of calculus of kidney GLADYS RAHMAN Comment on above: Right Start: 08-23-2015 Cystoscopy GLADYS DOWLING Comment on above: stone extraction, RG Aspiration of ectopi c from fallopian tube GLADYS RAHMAN Bilateral tubal ligation FEI RAHMAN Cholecystectomy GLADYS MELENDEZ Plan of Treatment Date Care Activity Detail Author Start: 12-09-2024 Screening for malign ant neoplasm of breast Mammogram [facility] Start: 05-21-2024 End: 05-21-2024 Patient encounter procedure 05/21/2024 11:30 AM EST Office Visit [facility] [address] [place] [id number] Car Robison MD [address] [place] [id number] [facility] Start: 03-14-2024 Influenza vaccination Influenza Vacc ine (#1) [facility] Healthcare Start: 2010 Screening for malign ant neoplasm of cervix [facility] Start: 2001 Screening for malign ant neoplasm of cervix Pap Smear [facility] Immunizations Immunization Date Immunization Notes Care Provider Fa cility 05-09-2021 SARS-CoV-2 (COVID-19 ) mRNA-1273 vaccine GLADYS LACEY [facility] 08-09-2020 SARS-CoV-2 (COVID-19 ) mRNA-1273 vaccine GLADYS LACEY [facility] 07-12-2020 SARS-CoV-2 (COVID-19 ) mRNA-1273 vaccine GLADYS LACEY [facility] 04-21-2018 influenza virus vaccine, unspecified formulation GLADYS LACEY [facility] 04-16-2017 influenza virus vaccine, unspecified formulation GLADYS LACEY [facility] 05-06-2016 influenza virus vaccine, unspecified formulation GLADYS LACEY [facility] 06-29-1999 hepatitis B vaccine, pediatric or pediatric/adolescent dosage GLADYS LACEY [facility] 11-15-1998 hepatitis B vaccine, pediatric or pediatric/adolescent dosage GLADYS LACEY [facility] 10-13-1998 hepatitis B vaccine, pediatric or pediatric/adolescent dosage GLADYS LACEY [facility] 10-13-1998 Td(adult) unspecifie d formulation GLADYS LACEY [facility] 08-01-1992 measles, mumps and rubella virus vaccine GLADYS LACEY [facility] 03-04-1986 Diphtheria, tetanus toxoids and acellular pertussis vaccine, and poliovirus vaccine, inactivated GLADYS LACEY [facility] 05-11-1982 Diphtheria, tetanus toxoids and acellular pertussis vaccine, and poliovirus vaccine, inactivated GLADYS LACEY [facility] 02-02-1982 measles, mumps and rubella virus vaccine GLADYS LACEY [facility] 05-13-1981 Diphtheria, tetanus toxoids and acellular pertussis vaccine, and poliovirus vaccine, inactivated GLADYS LACEY [facility] 03-11-1981 Diphtheria, tetanus toxoids and acellular pertussis vaccine, and poliovirus vaccine, inactivated GLADYS LACEY [facility] 1980 Diphtheria, tetanus toxoids and acellular pertussis vaccine, and poliovirus vaccine, inactivated GLADYS LACEY [facility] Payers Date Payer Category Payer Private Health Insurance [facility] [id number] 2023-Present [address] [address] [place] [address] [id number] 2023 Unknown [employer] [id number] 2023-Present [address] [place] [address] [id number] 2023 Private Health Insurance [id number] 2023 Unknown [id number] 2023 Unknown [id number] 2022 Unknown [id number] 2022 Unknown [id number] 2019 Unknown [id number] 1980 Unknown [id number] .727 1980 Unknown [id number] 2.16.840.1.261254.3.579.2 .727 1980 Unknown [id number] 2.16.840.1.300901.3.579.2 .593 1980 Unknown [id number] 2.16.840.1.168970.3.579.2 .593 1980 Unknown [id number] 2.16.840.1.530858.3.579.2 .593 1980 Unknown [id number] 2.16.840.1.320558.3.579.2 .593 1980 Unknown [id number] 2.16.840.1.732133.3.579.2 .593 1980 Unknown [id number] 2.16.840.1.565478.3.579.2 .1259 1980 Unknown [id number] 2.16.840.1.115154.3.579.2 .1259 1980 Unknown [id number] .1259 1959 Self-pay Social History Date Type Detail Facility Start: 08-28-2022 End: 06-19-2023 Tobacco smoking status Never smoked tobacco (finding) [facility] Tobacco smoking status Never [facility] Start: 10-08-2023 End: 10-09-2023 Sex Assigned At Female [facility] Start: 06-19-2023 Tobacco use and exposure Smoke less tobacco non-user [facility] Start: 04-13-2024 Alcoholic beverage intake Curr ent drinker of alcohol (finding) [facility] Start: 10-08-2023 End: 10-09-2023 History of Social function [facility] Do you belong to any clubs or organizations such as episcopalian groups, unions, fraternal or athletic groups, or school groups? No [facility] Are you now , , , , never or living with a partner? [facility] How often to you hav e a drink containing alcohol? 2-4 times a month [facility] How many standard dr inks containing alcohol do you have on a typical day? 1 or 2 [facility] How often do you hav e 6 or more drinks on 1 occasion? Never [facility] Do you feel stress - tense, restless, nervous, or anxious, or unable to sleep at night because your mind is troubled all the time - these days [OSQ] To some extent [facility] (I/We) worried wheth er (my/our) food would run out before (I/we) got money to buy more. Never true [facility] Start: 06-08-2023 Alcohol Comment caffeine: 1-2 cups per day [facility] Start: 1980 Sex assigned at Not on file [facility] Functional Status Date Assessment Result Facility 08-28-2022 Functional Status N/A [facility] History of Present illness Narrative 04-13-2024 Car Robison MD - 04/13/2024 1:39 PM [place] Robison MD - 04/13/2024 1:38 PM [place] Robison MD - 04/13/2024 1:38 PM [place] Robison MD - 04/13/2024 1:38 PM EDT Note Date & Type Note Facility 04-13-2024 History of Presen t illness Narrative Associated Problem(s): Stage 3a chronic kidney disease (CKD) (CMS/HCC) Renal function stable and will repeat in spring. Associated Problem(s): Major depressive disorder, recurrent episode, mild (HCC) (CMS/HCC) Increased symptoms and increase wellbutrin. Warned will take 2-3 weeks to notice improvement in mood. Associated Problem(s): Generalized anxiety disorder (CMS/HCC) Increased symptoms and increase wellbutrin. Warned will take 2-3 weeks to notice improvement in mood. Associated Problem(s): Acquired hypothyroidism (CMS/HCC) No signs of low thyroid and continue medication. Images from the original note were not included. Subjective Patient ID: Herman Moore is a 43 y.o. female who presents for Follow-up (6m) and Anxiety (Wants to talk about welbutrin/ anxiety has been getting worse). Follow up depression, anxiety, and hypothyroid. Reports worsening mood. Mild depression and at times down and sad but tolerable. C/o severe anxiety. No specific stressors or changes. Nervous and worry all the time. Stressed out and overwhelmed. Thought racing and hard to clear mind. Hard to focus or concentrate. Not sleeping well and hard to clear mind. Using hydroxyzine PRN and helps when needed. No signs of low thyroid. No fatigue or change in hair, skin, or nails. Review of Systems Respiratory: Negative for cough, shortness of breath and wheezing. Cardiovascular: Negative for chest pain and palpitations. Gastrointestinal: Negative for abdominal pain, diarrhea, nausea and vomiting. Genitourinary: Negative for dysuria. Objective Physical Exam Constitutional: General: She is not in acute distress. Appearance: Normal appearance. HENT: Head: Normocephalic. Right Ear: Tympanic membrane normal. Left Ear: Tympanic membrane normal. Eyes: Extraocular Movements: Extraocular movements intact. Pupils: Pupils are equal, round, and reactive to light. Cardiovascular: Rate and Rhythm: Normal rate and regular rhythm. Heart sounds: No murmur heard. No friction rub. No gallop. Pulmonary: Effort: Pulmonary effort is normal. Breath sounds: Normal breath sounds. No wheezing, rhonchi or rales. Abdominal: General: Bowel sounds are normal. There is no distension. Palpations: Abdomen is soft. Tenderness: There is no abdominal tenderness. There is no guarding or rebound. Musculoskeletal: Cervical back: Neck supple. Right lower leg: No edema. Left lower leg: No edema. Neurological: Mental Status: She is alert. Assessment/Plan Problem List Items Addressed This Visit Acquired hypothyroidism (CMS/HCC) No signs of low thyroid and continue medication. Generalized anxiety disorder (CMS/HCC) - Primary Increased symptoms and increase wellbutrin. Warned will take 2-3 weeks to notice improvement in mood. Major depressive disorder, recurrent episode, mild (HCC) (CMS/HCC) Increased symptoms and increase wellbutrin. Warned will take 2-3 weeks to notice improvement in mood. Relevant Medications buPROPion XL (Forfivo XL) 450 MG 24 hr tablet Stage 3a chronic kidney disease (CKD) (CMS/HCC) Renal function stable and will repeat in spring. documented in this encounter [facility] Hospital Discharge instructions 08-28-2022 Note Date & Type Note Facility 08-28-2022 Hospital Discharg e instructions Patient Education 08/28/2022 12:33:00 Dietary Guidelines to Help Prevent Kidney Stones Dietary Guidelines to Help Prevent Kidney Stones Kidney stones are deposits of minerals and salts that form inside your kidneys. Your risk of developing kidney stones may be greater depending on your diet, your lifestyle, the medicines you take, and whether you have certain medical conditions. Most people can reduce their chances of developing kidney stones by following the instructions below. Depending on your overall health and the type of kidney stones you tend to develop, your dietitian may give you more specific instructions. What are tips for following this plan? Reading food labels Choose foods with no salt added or low-salt labels. Limit your sodium intake to less than 1500 mg per day. Choose foods with calcium for each meal and snack. Try to eat about 300 mg of calcium at each meal. Foods that contain 200 500 mg of calcium per serving include: ?8 oz (237 ml) of milk, fortified nondairy milk, and fortified fruit juice. ?8 oz (237 ml) of kefir, yogurt, and soy yogurt. ?4 oz (118 ml) of tofu. ?1 oz of cheese. ?1 cup (300 g) of dried figs. ?1 cup (91 g) of cooked broccoli. ?1 3 oz can of sardines or mackerel. Most people need 1000 to 1500 mg of calcium each day. Talk to your dietitian about how much calcium is recommended for you. Shopping Buy plenty of fresh fruits and vegetables. Most people do not need to avoid fruits and vegetables, even if they contain nutrients that may contribute to kidney stones. When shopping for convenience foods, choose: ?Whole pieces of fruit. ?Premade salads with dressing on the side. ?Low-fat fruit and yogurt smoothies. Avoid buying frozen meals or prepared deli foods. Look for foods with live cultures, such as yogurt and kefir. Cooking Do not add salt to food when cooking. Place a salt shaker on the table and allow each person to add his or her own salt to taste. Use vegetable protein, such as beans, textured vegetable protein (TVP), or tofu instead of meat in pasta, casseroles, and soups. Meal planning Eat less salt, if told by your dietitian. To do this: ?Avoid eating processed or premade food. ?Avoid eating fast food. Eat less animal protein, including cheese, meat, poultry, or fish, if told by your dietitian. To do this: ?Limit the number of times you have meat, poultry, fish, or cheese each week. Eat a diet free of meat at least 2 days a week. ?Eat only one serving each day of meat, poultry, fish, or seafood. ?When you prepare animal protein, cut pieces into small portion sizes. For most meat and fish, one serving is about the size of one deck of cards. Eat at least 5 servings of fresh fruits and vegetables each day. To do this: ?Keep fruits and vegetables on hand for snacks. ?Eat 1 piece of fruit or a handful of berries with breakfast. ?Have a salad and fruit at lunch. ?Have two kinds of vegetables at dinner. Limit foods that are high in a substance called oxalate. These include: ?Spinach. ?Rhubarb. ?Beets. ?Potato chips and tunisian fries. ?Nuts. If you regularly take a diuretic medicine, make sure to eat at least 1 2 fruits or vegetables high in potassium each day. These include: ?Avocado. ?Banana. ?[place], prune, carrot, or tomato juice. ?Baked potato. ?Cabbage. ?Beans and split peas. General instructions Drink enough fluid to keep your urine clear or pale yellow. This is the most important thing you can do. Talk to your health care provider and dietitian about taking daily supplements. Depending on your health and the cause of your kidney stones, you may be advised: ?Not to take supplements with vitamin C. ?To take a calcium supplement. ?To take a daily probiotic supplement. ?To take other supplements such as magnesium, fish oil, or vitamin B6. Take all medicines and supplements as told by your health care provider. Limit alcohol intake to no more than 1 drink a day for non women and 2 drinks a day for men. One drink equals 12 oz of beer, 5 oz of wine, or 1 oz of hard liquor. Lose weight if told by your health care provider. Work with your dietitian to find strategies and an eating plan that works best for you. What foods are not recommended? Limit your intake of the following foods, or as told by your dietitian. Talk to your dietitian about specific foods you should avoid based on the type of kidney stones and your overall health. Grains Breads. Bagels. Rolls. Baked goods. Salted crackers. Cereal. Pasta. Vegetables Spinach. Rhubarb. Beets. Canned vegetables. Pickles. Olives. Meats and other protein foods Nuts. Nut butters. Large portions of meat, poultry, or fish. Salted or cured meats. Deli meats. Hot dogs. Sausages. Dairy Cheese. Beverages Regular soft drinks. Regular vegetable juice. Seasonings and other foods Seasoning blends with salt. Salad dressings. Canned soups. Soy sauce. Ketchup. Barbecue sauce. Canned pasta sauce. Casseroles. Pizza. Lasagna. Frozen meals. Potato chips. Solomon Islander fries. Summary You can reduce your risk of kidney stones by making changes to your diet. The most important thing you can do is drink enough fluid. You should drink enough fluid to keep your urine clear or pale yellow. Ask your health care provider or dietitian how much protein from animal sources you should eat each day, and also how much salt and calcium you should have each day. This information is not intended to replace advice given to you by your health care provider. Make sure you discuss any questions you have with your health care provider. Document Released: 2011 Document Revised: 10/20/2019 Document Reviewed: 06/10/2017 [employer] Patient Education 2020 [employer]. Follow Up Care 04/24/2021 09:32:24 With:GLADYS RAHMAN PA-C, URL Address: [facility] [place] [address] When: Unknown [facility] Evaluation + Plan note Note Date & Type Note Facility Evaluation + Plan note Future Appointments Appointment Date:09/03/2023 01:00:00 PM Scheduled Provider:GLADYS RAHMAN PA-C Location:[facility] Appointment Type:URO Office Visit [facility] Evaluation note Note Date & Type Note Facility Evaluation note Diagnosis Generalized anxiety disorder (CMS/HCC)- Primary Generalized anxiety disorder Major depressive disorder, recurrent episode, mild (HCC) (CMS/HCC) Major depressive disorder, recurrent episode, mild Acquired hypothyroidism (CMS/HCC) Unspecified hypothyroidism Stage 3a chronic kidney disease (CKD) (CMS/HCC) documented in this encounter [facility] Hospital course Narrative Note Date & Type Note Facility Hospital course Narrative No data available for this section [facility] Progress note Note Date & Type Note Facility Progress note No data available for this section [facility] [place] Summary Purpose Family History No Family History Records FoundNo Family History Records FoundNo Family History Records Found Advance Directives No Advanced Directives Records FoundNo Advanced Directives Records FoundNo Advanced Directives Records Found Additional Source Comments Patient Care team informatio n (unrecognized section and content) Hr Recruiter Relationship Specialty Start Date End Date Car Robison MD [address] [place] [address] PCP - General Family Medicine 10/09/23 INFORMATION SOURCE (unrecogn ized section and content) DATE CREATED AUTHOR 09/01/2022 [facility] DATE CREATED AUTHOR AUTHOR'S ORGANIZ ATION 10/19/2022 [facility] DATE CREATED AUTHOR AUTHOR'S ORGANIZ ATION 04/15/2024 [facility] EPIC Reason for Visit (unrecogniz ed section and content) Reason Comments Follow-up 6m Anxiety Wants to talk about welbutrin/ anxiety has been getting worse FOR RECORDS PERTAINING TO PATIENTS WHO ARE OR HAVE BEEN ENROLLED IN A CHEMICAL DEPENDENCY/SUBSTANCEABUSE PROGRAM, SOME INFORMATION MAY BE OMITTED. This clinical summary was aggregated from multiple sources. Caution should be exercised in using it in the provision of clinical care. This summary normalizes information from multiple sources, and as a consequence, information in this document may materially change the coding, format and clinical context of patient data. In addition, data may be omitted in some cases. CLINICAL DECISIONS SHOULD BE BASED ON THE PRIMARY CLINICAL RECORDS. [employer] provides no warranty or guarantee of the accuracy or completeness of information in this document.
--- NOTE | 2024-05-11 11:17 | XR_ITS ---
The [address] [address] Patient Name: NATY BARR MRN: [id number] date: 1980 Sex: F Assigned Patient Location: [facility] Current Patient Location: [facility] Accession/Order Number: [id number] Exam Date: 05/11/2024 11:20 Report Date: 05/11/2024 12:30 At the request of: TOMY PHILIP Procedure: XR chest 2V EXAM: XR chest 2V HISTORY: Acute Cough COMPARISON: 09/01/2010 TECHNIQUE: Upright PA and lateral chest x-ray FINDINGS: The heart is not enlarged and the vasculature is not distended. No acute infiltrate, effusion or pneumothorax is identified. Nipple shadows are noted. The osseous structures are grossly intact. Surgical clips are seen in the upper abdomen. XR/XR chest 2V IMPRESSION: No acute infiltrate or evidence of cardiac decompensation. The overall appearance of the chest has not changed significantly. Electronically authenticated by: SHIRIN RAMIREZ Date: 05/11/2024 12:30
== END 2024-05-11 11:09 | disposition home or self-care (01) ==
LOC: RAD 11:09
PROVIDERS: PCP Family Medicine
DX: J06.9 Acute upper respiratory infection, unspecified (principal); B96.89 Other specified bacterial agents as the cause of diseases classified elsewhere; R05.1 Acute cough
CPT/HCPCS: 71046

== ENCOUNTER 2024-05-13 10:52 | Emergency (ER) | payer OTHER, SELFPAY ==
[2024-05-13] VITALS (16 sets, daily range): BP systolic 116–160; BP diastolic 82–112; PULSE 97–139; TEMP 36.8; O2SAT 94–97; BMI 28.2
--- NOTE | 2024-05-13 11:32 | ECG_ITS ---
The [facility] Test Date: 2024-05-13 Pat Name: NATY BARR Department: Room: - Gender: Female Admissions Recruiter: : 1980 Requested By: MORA ROBISON Order Number: [id number] Reading MD: ARLINE POMPA Measurements Intervals [place] Rate: 129 P: 52 MA: 144 QRS: 45 QRSD: 80 T: 56 QT: 298 QTc: 374 Interpretive Statements 1120 Sinus tachycardia 6220 Possible left atrial enlargement 9140 abnormal rhythm ECG No previous ECG available for comparison Electronically Signed On 05-13-2024 22:45:26 EDT by ARLINE POMPA
--- NOTE | 2024-05-13 11:33 | CT_ITS ---
[address] [address] Patient Name: NATY BARR MRN: [id number] date: 1980 Sex: F Assigned Patient Location: ER Current Patient Location: Accession/Order Number: [id number] Exam Date: 05/13/2024 11:55 Report Date: 05/13/2024 12:28 At the request of: CARL PAYAN Procedure: CT angio chest EXAMINATION: CT angio chest HISTORY: Chest pain/tachycardia COMPARISON: No relevant comparison available. TECHNIQUE: Multi-planar CT images were created with IV contrast. Axial, Coronal, and Sagittal images. Dose reduction techniques were achieved by using automated exposure control and/or adjustment of mA and/or kV according to patient size and/or use of iterative reconstruction technique. FINDINGS: LUNGS: Moderate infiltrates identified throughout the right lower lobe. The left lung is clear. PLEURA: No mass, effusion, or pneumothorax. VASCULATURE: Normal postcontrast opacification of the central pulmonary arterial tree with no filling defects LINO: No mass or adenopathy. MEDIASTINUM: No mass or adenopathy. CARDIAC: No enlargement or pericardial effusion Coronary arteries: No calcifications AORTA: No aneurysm or dissection. CHEST WALL: No mass or axillary adenopathy. BONES: No bone lesion or fracture. LIMITED ABDOMEN: No suspicious findings. Limited images of the upper abdomen. OTHER: Negative. CT/CT angio chest IMPRESSION: Right lower lobe pneumonia No central pulmonary thromboembolic disease Electronically authenticated by: VIKASH MERCADO Date: 05/13/2024 12:28
[2024-05-13 11:38] LABS: Basophils Absolute Auto 0.1 10^3/uL (0.0-0.1); Basophils Percent Auto 0.5 % (0.2-2.0); Eosinophils Absolute Auto 0.1 10^3/uL (0.0-0.7); Eosinophils Percent Auto 1.1 % (0.9-7.0); Hematocrit 41.4 % (36.0-48.0); Hemoglobin 14.8 g/dL (12.0-16.0); Immature Granulocytes Abs Auto 0.03 10^3/uL (0.00-0.03); Immature Granulocytes Pct Auto 0.3 % (0.0-0.5); Lymphocytes Absolute Auto 1.3 10^3/uL (1.2-3.8); Lymphocytes Percent Auto 11.8 % (20.5-60.0); Mean Corpuscular HGB Conc 35.7 g/dL (29.9-35.2); Mean Corpuscular Volume 89.4 fL (81.0-99.0); Mean Platelet Volume 8.5 fL (9.5-13.5); Neutrophils Absolute Auto 8.3 10^3/uL (1.4-6.5); Neutrophils Percent Auto 77.3 % (43.0-75.0); Platelet Count 257 10^3/uL (150-450); Red Blood Count 4.63 10^6/uL (4.20-5.40); Red Cell Distribution Width 11.8 % (11.0-15.0); White Blood Count 10.7 10^3/uL (4.0-11.0)
[2024-05-13] MEDS: MORPHINE SULFATE 2 MG/ML SYRINGE IV (11:38)
--- OUTSIDE RECORDS SUMMARY | 2024-05-13 11:42 | XMS_ITS | CCD ---
Author Organization [facility] Care Team Providers Care Guest Services Director Name Role Phone CAR ROBISON Primary Care Physician [phone] RENETTA RAHMAN Attending UnavailMD Ronak Flores. Primary [...] GLADYS Attending Unavailable LACEY, GLADYS Admitting Unavailable ZIEBER, DR FLIP Blackburn Consulting Unavailable ROSS, RONAK ALVARENGA Primary Care Unavailable LACEY, GLADYS Consulting Unavailable MISC, DR ORR Attending Unavailable MISC, DR ORR Admitting Unavailable ROSS, RONAK ALVARENGA Primary Care Unavailable MISC, DR ORR Consulting Unavailable RICKI, DR CAR Anderson Primary Care Unavailable ZIEBER, DR FLIP Blackburn Consulting Unavailable RICKI, DR CAR Anderson Attending Unavailable RICKI, DR CAR Anderson Admitting Unavailable RICKI, DR CAR Anderson Consulting Unavailable Car Robison MD Primary Care Provider RICKI, CAR Attending Unavailable ESTER LABOY Attending Unavailable RICKI, CAR Attending Unavailable CABALLERORUPINDER HEATH Attending Unavailabl e Allergies Allergy Classification Reported Allergen(s) Allergy Type Date of Onset Reaction(s) Facility (5 sources) Pseudoephedrine Drug Allergy 3 [facility] Work Phone: (5 sources) Triprolidine Drug Allergy 3 Unknown [facility] Medications Current Medications Medication Drug Class(es) Dates Sig (Normalized) Sig (Original) amoxicillin 875 mg / clavulanate 125 mg oral tablet (2 sources) Penicillin-class Antibacterial Start: 05-11-2024 End: 05-18-2024 take 1 tablet by mouth in the morning amoxicillin-clavu lanate (Augmentin) 875-125 MG tablet Indications: Bacterial upper respiratory infection Take 1 tablet (875 mg) by mouth in the morning and 1 tablet (875 mg) before bedtime. Do all this for 7 days. 14 tablet 05/11/2024 05/18/2024 Active 24 hr buPROPion hydrochloride 450 mg extended release oral tablet (8 sources) Aminoketone Start: 04-13-2024 take 1 tablet [...] resin 4000 mg powder for oral suspension (5 sources) Bile Acid Sequestrant Start: 01-19-2024 End: 01-18-2025 cholestyramine (Questran) 4 g packet Indications: Gastroesophageal reflux disease without esophagitis MIX 1 PACKET IN LIQUID AND TAKE ONCE A DAY 90 packet 04/16/2024 Active hydroCHLOROthiazide 25 mg oral tablet (6 sources) Thiazide Diuretic Start: 10-21-2023 take 1 [...] day(s), # 90 tab(s), Refills(s) 3, Pharmacy: [facility]/pharmacy #[id number], 167, cm, 08/28/22 13:21:00 EST, Height/Length Dosing, 73.5, kg, 08/28/22 13:21:00 EST, Weight Dosing Start Date: 08/28/22 Stop Date: 08/23/23 Status: Ordered hydrOXYzine hydrochloride 10 mg oral tablet (5 sources) Antihistamine Start: 06-23-2023 take 1 tablet by mouth three times daily as needed hydrOXYzine HCl (Atarax) 10 MG tablet Indications: Anxiety disorder, unspecified , Anxiety state (CMS/HCC) TAKE 1 TABLET BY MOUTH THREE TIMES A DAY NEEDED 270 tablet 1 06/23/2023 Active levothyroxine sodium 0.05 mg oral tablet (6 sources) l-Thyroxine Start: 10-21-2023 take 1 tablet by mouth once daily levothyroxine (Synthroid, Levoxyl) 50 MCG tablet Indications: Acquired hypothyroidism (CMS/HCC) Take 1 tablet (50 mcg) by mouth Daily 90 tablet 3 10/21/2023 Active Start: 07-20-2019 take 1 tablet by raul th once daily Synthroid 50 mcg Tab 50 microgram = 1 tab(s), Oral, Daily, # 30 tab(s), Refills(s) 0 Start Date: 07/20/19 Status: Ordered Multi Vitamin+ (1 source) Start: 07-20-2019 Multi Vitamin+ Daily, Refill(s) 0 Start Date: 07/20/19 Status: Ordered omeprazole 40 mg delayed release oral capsule (5 sources) Proton Pump Inhibitor Start: 07-20-2023 take 1 capsule by mouth once daily omeprazole (PriLOSEC) [address] capsule Indications: Gastro-esophageal reflux disease without esophagitis , Esophageal reflux TAKE 1 CAPSULE BY MOUTH EVERY DAY 90 capsule 3 07/20/2023 Active potassium citrate 10 meq extended release oral tablet (6 sources) Start: 10-21-2023 End: 04-13-2024 take 1 tablet by mouth once daily potassium citrate CR (Urocit-K-10) 10 mEq ER tablet Indications: H/O renal calculi Take 1 tablet (10 mEq) by mouth Daily 90 tablet 3 04/13/2024 Active Start: 08-28-2022 End: 08-23-2023 Urocit-K 10 mEq Tab-ER 10 mE q, 1 tab(s), Oral, Daily for 90 day(s), 90 tab(s), Refill(s) 3, [facility]/pharmacy #[id number], 167, cm, 08/28/22 13:21:00 EST, Height/Length Dosing, 73.5, kg, 08/28/22 13:21:00 EST, Weight Dosing Start Date: 08/28/22 Stop Date: 08/23/23 Status: Ordered triamcinolone acetonide 1 mg/ml topical cream (5 sources) Corticosteroid Start: 06-19-2023 triamcinolone (Kenalog) 0.1 % cream Indications: Other atopic dermatitis Apply to affected areas, up to twice a day when flared, do not use one the face, groin, or underarms, 30 day supply 30 g 11 06/19/2023 Active Completed/Discontinued Medications Medication Drug Class(es) Dates Sig (Normalized) Sig (Original) levonorgestrel 0.566175 mg/hr intrauterine system (1 source) Progestin, Progestin-containin g Intrauterine Device Start: 07-20-2019 Mirena 52 mg intrauteral device 52 mg = 1 EA, IntraUteral, Once, X 1 dose(s), # 1 EA, Refills(s) 0 Start Date: 07/20/19 Status: Ordered Problems Active Problems Problem Classification Problem Date Documented Date Episodic/Chronic Abdominal pain (1 source) Right lower quadrant pain 07-20-2019 Episodic Anxiety disorders (7 sources) Generalized anxiety disorder; Translations: [Generalized anxiety disorder] Onset: 10-09-2023 04-13-2024 Chronic Chronic kidney disease (7 sources) Chronic kidney disease stage 3A ; Translations: [Stage 3a chronic kidney disease (CKD) ([facility])] Onset: 10-09-2023 04-13-2024 Chronic Esophageal disorders (5 sources) Gastroesophageal reflux disease without esophagitis; Translations: [Gastro-esophageal reflux disease without esophagitis] Onset: 10-09-2023 10-09-2023 Chronic Genitourinary symptoms and ill-defined conditions (1 source) Shon hematuria 07-20-2019 Episodic Mood disorders (7 sources) Recurrent major depressive episodes, mild ; Translations: [Major depressive disorder, recurrent, mild] Onset: 10-09-2023 04-13-2024 Chronic Nutritional deficiencies (5 sources) Vitamin D deficiency; Translations: [Vitamin D deficiency, unspecified] Onset: 10-07-2023 10-07-2023 Chronic Other lower respiratory disease (2 sources) Cough; Translations: [Acute cough] 05-11-2024 Episodic Other lower respiratory disease (2 sources) Cough; Translations: [Cough] Onset: 05-11-2024 05-11-2024 Episodic Other screening for suspected conditions (not mental disorders or infectious disease) (4 sources) Encounter for screening mammogram for malignant neoplasm of breast; Translations: [ENC SCR MAMMO MALIG NEOPLASM BREAST] Onset: 10-03-2022 Episodic Other upper respiratory infections (4 sources) Bacterial upper respiratory infection; Translations: [Acute upper respiratory infection, unspecified] Onset: 05-11-2024 05-11-2024 Episodic Residual codes; unclassified (1 source) Family history of malignant neoplasm of trachea, bronchus and lung; Translations: [FAM HX MALIG NEOPLSM TRACH BRON LNG] Onset: 10-14-2022 Episodic Thyroid disorders (8 sources) Hypothyroidism, unspecified; Translations: [Acquired hypothyroidism] Onset: 09-20-2022 04-13-2024 Chronic Past or Other Problems Problem Classification Problem Date Documented Date Episodic/Chronic Calculus of urinary tract (12 sources) Kidney stone; Translations: [Calculus of kidney] Onset: 08-28-2022 Episodic Noninfectious gastroenteritis (5 sources) Chronic diarrhea; Translations: [Noninfective gastroenteritis and colitis, unspecified] Onset: 10-09-2023 10-09-2023 Episodic Results Test Name Value Interpretation Reference Range Facility MG MAMM SCREEN 3D PER CADon 10-03-2022 MG MAMM SCREEN 3D PER CAD Patient: HERMAN MOORE Exam Date: 10/03/2022 : 1980 Gender:F Ordering : DR CAR ROBISON . Admission #: [id number] Family : Order #: [id number] CLICK HERE TO VIEW EXAM RADIOLOGY REPORT [...] lung cancer at age 53. LOCATION: [facility] BREAST COMPOSITION: Heterogeneously dense,which may obscure [...] M.D. on 10/04/2022 at 07:11 Normal [facility] CBC AUTO DIFFon 09-17-2022 BASO # 0.1 103/ul Normal 0.0-0.1 [facility] Comment on above: Performed By: #### C BC #### [facility] [address] [address] [address] Clara Frye Basophils/100 WBC (Bld) 1.3 % Normal 0.2-2.0 [facility] Comment on above: Performed By: #### C BC #### [facility] [address] [address] [address] Clara Frye EO # 0.3 103/ul Normal 0.0-0.7 [facility] Comment on above: Performed By: #### C BC #### [facility] [address] [address] [address] Clara Frye Eosinophils/100 WBC (Bld) 4.3 % Normal 0.9-7.0 [facility] Comment on above: Performed By: #### C BC #### [facility] [address] [place] [address] Dr. Clara Frye Erythrocyte distribution width (RBC) [Ratio] 11.8 % Normal 11.0-15.0 [facility] Comment on above: Performed By: #### C BC #### [facility] [address] [place] [address] Dr. Clara Frye Hematocrit (Bld) [Volume fraction] 40.5 % Normal 36.0-48.0 [facility] Comment on above: Performed By: #### C BC #### [facility] [address] [place] [address] Dr. Clara Frye Hemoglobin (Bld) [Mass/Vol] 14.4 g/dL Normal 12.0-16.0 [facility] Comment on above: Performed By: #### C BC #### [facility] [address] [place] [address] Dr. Clara Frye IG # 0.05 10e3/ul Critically high 0.00-0.03 [facility] Comment on above: Performed By: #### C BC #### [facility] [address] [place] [address] Dr. Clara Frye IG % 0.6 % Critically high 0.0-0.5 [facility] Comment on above: Performed By: #### C BC #### [facility] [address] [place] [address] Dr. Clara Frye LYMPH # 2.1 103/ul Normal 1.2-3.8 [facility] Comment on above: Performed By: #### C BC #### [facility] [address] [place] [address] Dr. Clara Frye Lymphocytes/100 WBC (Bld) 26.6 % Normal 20.5-60.0 [facility] Comment on above: Performed By: #### C BC #### [facility] [address] [place] [address] Dr. Clara Frye MANUAL DIFF REQ NO Normal [facility] Comment on above: Performed By: #### C BC #### [facility] [address] [place] [address] Dr. Clara Frye MCH (RBC) [Entitic mass] 31.8 pg Normal 26.7-34.0 [facility] Comment on above: Performed By: #### C BC #### [facility] [address] [place] [address] Dr. Clara Frye MCHC (RBC) [Mass/Vol] 35.6 g/dL Critically high 29.9-35.2 [facility] Comment on above: Performed By: #### C BC #### [facility] [address] [address] [address] Clara Frye MCV (RBC) [Entitic vol] 89.4 fL Normal 81.0-99.0 [facility] Comment on above: Performed By: #### C BC #### [facility] [address] [place] [address] Dr. Clara Frye MONO # 0.8 103/ul Normal 0.3-0.8 [facility] Comment on above: Performed By: #### C BC #### [facility] [address] [place] [address] Dr. Clara Frye Monocytes/100 WBC (Bld) 9.4 % Normal 1.7-12.0 [facility] Comment on above: Performed By: #### C BC #### [facility] [address] [place] [address] Dr. Clara Frye NEUT # 4.6 103/ul Normal 1.4-6.5 [facility] Comment on above: Performed By: #### C BC #### [facility] [address] [place] [address] Dr. Clara Frye Neutrophils/100 WBC (Bld) 57.8 % Normal 43.0-75.0 [facility] Comment on above: Performed By: #### C BC #### [facility] [address] [place] [address] Dr. Clara Frye Platelet mean volume (Bld) [Entitic vol] 8.5 fL Critically low 9.5-13.5 [facility] Comment on above: Performed By: #### C BC #### [facility] [address] [place] [address] Dr. Clara Frye PLT 285 103/ul Normal 150-450 [facility] Comment on above: Performed By: #### C BC #### [facility] [address] [place] [address] Dr. Clara Frye RBC 4.53 106/ul Normal 4.20-5.40 [facility] Comment on above: Performed By: #### C BC #### [facility] [address] [place] [address] Dr. Clara Frye WBC 7.9 103/ul Normal 4.0-11.0 [facility] Comment on above: Performed By: #### C BC #### [facility] [address] [place] [address] Dr. Clara Frye FREE T3on 09-17-2022 FREE T3 2.40 pg/mlL Normal 2.18-3.98 [facility] Comment on above: Performed By: #### V ZINA, FT4 #### [facility] [address] [place] [address] Dr. Clara Frye FREE T4on 09-17-2022 Free T4 [Mass/Vol] 0.89 ng/dL Normal 0.76-1.46 [facility] Comment on above: Performed By: #### V ZINA, FT4 #### [facility] [address] [place] [address] Dr. Clara Frye GLYCOHEMOGLOBIN A1Con 2022 ADA RECOMMENDATION SEE BELOW Normal [facility] Comment on above: Result Comment: ADA RECOMMENDED LIMIT 4.0 - 6.0 ADA THERAPEUTIC TARGET < 7.0 ACTION SUGGESTED > 7.0 Performed By: #### A 1C #### [facility] [address] [place] [address] Dr. Clara Frye Glucose [Mass/Vol] 97 mg/dL Normal [facility] Comment on above: Performed By: #### A 1C #### [facility] [address] [place] [address] Dr. Clara Frye HbA1c (Bld) [Mass fraction] 5.0 % Normal 4.5-6.2 [facility] Comment on above: Performed By: #### A 1C #### [facility] [address] [address] [address] Clara Frye LIPID PROFILEon 09-17-2022 CHOL-HDL RATIO NORM SEE BELOW Normal [facility] Comment on above: Result Comment: 3.3 - 4.4 LOW RISK 4.4 - 7.1 AVERAGE RISK 7.1 - 11.0 MODERATE RISK >11.0 HIGH RISK Performed By: #### B MP, LIVER, FT3, TSH, LIPID #### [facility] [address] [address] [address] Clara Frye Cholesterol [Mass/Vol] 154 mg/dL Normal <=200 [facility] Comment on above: Performed By: #### B MP, LIVER, FT3, TSH, LIPID #### [facility] [address] [address] [address] Clara Frye Cholesterol in HDL [Mass/Vol] 37 mg/dL Critically low 40-60 [facility] Comment on above: Performed By: #### B MP, LIVER, FT3, TSH, LIPID #### [facility] [address] [address] [address] Clara Frye Cholesterol in LDL [Mass/Vol] 84.4 mg/dL Normal [facility] Comment on above: Performed By: #### B MP, LIVER, FT3, TSH, LIPID #### [facility] [address] [address] [address] Clara Frye Cholesterol.total/Ch olesterol in HDL [Mass ratio] 4.2 {ratio} Normal [facility] Comment on above: Performed By: #### B MP, LIVER, FT3, TSH, LIPID #### [facility] [address] [address] [address] Clara Frye HDL NORMAL > or = 60 mg/dl - LO W CARDIOVASCULAR RISK <40 mg/dl - HIGH CARDIOVASCULAR RISK Normal [facility] Comment on above: Performed By: #### B MP, LIVER, FT3, TSH, LIPID #### [facility] [address] [address] [address] Clara Frye LDL CALC NORMAL SEE BELOW Normal [facility] Comment on above: Result Comment: <100 mg/dl OPTIMAL 100 - 129 mg/dl NEAR OR ABOVE OPTIMAL 130 - 159 mg/dl BORDERLINE HIGH 160 - 189 mg/dl HIGH >190 mg/dl VERY HIGH Performed By: #### B MP, LIVER, FT3, TSH, LIPID #### [facility] [address] [place] [address] Dr. Clara Frye Triglyceride [Mass/Vol] 163 mg/dL Critically high <=150 [facility] Comment on above: Performed By: #### B MP, LIVER, FT3, TSH, LIPID #### [facility] [address] [place] [address] Dr. Clara Frye VLDL CALC 32.6 mg/dL Normal [facility] Comment on above: Performed By: #### B MP, LIVER, FT3, TSH, LIPID #### [facility] [address] [place] [address] Dr. Clara Frye LIVER PROFILEon 09-17-2022 Albumin [Mass/Vol] 3.9 g/dL Normal 3.4-5.0 [facility] Comment on above: Performed By: #### B MP, LIVER, FT3, TSH, LIPID #### [facility] [address] [place] [address] Dr. Clara Frye Albumin/Globulin [Mass ratio] 1.0 {ratio} Normal [facility] Comment on above: Performed By: #### B MP, LIVER, FT3, TSH, LIPID #### [facility] [address] [place] [address] Dr. Clara Frye ALP [Catalytic activity/Vol] 60 U/L Normal 46-116 [facility] Comment on above: Performed By: #### B MP, LIVER, FT3, TSH, LIPID #### [facility] [address] [place] [address] Dr. Clara Frye ALT [Catalytic activity/Vol] 35 U/L Normal 14-59 [facility] Comment on above: Performed By: #### B MP, LIVER, FT3, TSH, LIPID #### [facility] [address] [place] [address] Dr. Clara Frye AST [Catalytic activity/Vol] 25 U/L Normal 15-37 [facility] Comment on above: Performed By: #### B MP, LIVER, FT3, TSH, LIPID #### [facility] [address] [place] [address] Dr. Clara Frye BILI, CONJUGATED 0.1 mg/dL Normal 0.0-0.2 [facility] Comment on above: Performed By: #### B MP, LIVER, FT3, TSH, LIPID #### [facility] [address] [place] [address] Dr. Clara Frye Bilirubin [Mass/Vol] 0.5 mg/dL Normal 0.2-1.0 [facility] Comment on above: Performed By: #### B MP, LIVER, FT3, TSH, LIPID #### [facility] [address] [place] [address] Dr. Clara Frye Globulin (S) [Mass/Vol] 3.9 g/dL Normal [facility] Comment on above: Performed By: #### B MP, LIVER, FT3, TSH, LIPID #### [facility] [address] [place] [address] Dr. Clara Frye Protein [Mass/Vol] 7.8 g/dL Normal 6.4-8.2 [facility] Comment on above: Performed By: #### B MP, LIVER, FT3, TSH, LIPID #### [facility] [address] [place] [address] Dr. Clara Frye PROF CHEM 8 (BAS METB)on Anion gap [Moles/Vol] 10.6 mmol/L Normal [facility] Comment on above: Performed By: #### B MP, LIVER, FT3, TSH, LIPID #### [facility] [address] [place] [address] Dr. Clara Frye Calcium [Mass/Vol] 9.5 mg/dL Normal 8.5-10.1 [facility] Comment on above: Performed By: #### B MP, LIVER, FT3, TSH, LIPID #### [facility] [address] [place] [address] Dr. Clara Frye Chloride [Moles/Vol] 103 mmol/L Normal 98-107 [facility] Comment on above: Performed By: #### B MP, LIVER, FT3, TSH, LIPID #### [facility] [address] [address] [address] Clara Frye CO2 [Moles/Vol] 30.3 mmol/L Normal 21.0-32.0 [facility] Comment on above: Performed By: #### B MP, LIVER, FT3, TSH, LIPID #### [facility] [address] [address] [address] Clara Frye Creatinine [Mass/Vol] 0.99 mg/dL Normal 0.55-1.02 [facility] Comment on above: Performed By: #### B MP, LIVER, FT3, TSH, LIPID #### [facility] [address] [place] [address] Dr. Clara Frye EGFR-AF STATELESS >60 Normal >=60 [facility] Comment on above: Performed By: #### B MP, LIVER, FT3, TSH, LIPID #### [facility] [address] [place] [address] Dr. Clara Frye EGFR-NON AF STATELESS >60 Normal >=60 [facility] Comment on above: Performed By: #### B MP, LIVER, FT3, TSH, LIPID #### [facility] [address] [place] [address] Dr. Clara Frye Glucose [Mass/Vol] 93 mg/dL Normal 74-106 [facility] Comment on above: Performed By: #### B MP, LIVER, FT3, TSH, LIPID #### [facility] [address] [place] [address] Dr. Clara Frye Potassium [Moles/Vol] 3.9 mmol/L Normal 3.5-5.1 [facility] Comment on above: Performed By: #### B MP, LIVER, FT3, TSH, LIPID #### [facility] [address] [place] [address] Dr. Clara Frye Sodium [Moles/Vol] 140 mmol/L Normal 136-145 [facility] Comment on above: Performed By: #### B MP, LIVER, FT3, TSH, LIPID #### [facility] [address] [place] [address] Dr. Clara Frye Urea nitrogen [Mass/Vol] 15.0 mg/dL Normal 7.0-18.0 [facility] Comment on above: Performed By: #### B MP, LIVER, FT3, TSH, LIPID #### [facility] [address] [place] [address] Dr. Clara Frye Urea nitrogen/Creatinine [Mass ratio] 15.2 mg/mg Normal [facility] Comment on above: Performed By: #### B MP, LIVER, FT3, TSH, LIPID #### [facility] [address] [place] [address] Dr. Clara Frye TSHon 09-17-2022 TSH 1.463 uIU/mL Normal 0.358-3.740 [facility] Comment on above: Performed By: #### Tresa IZAGUIRRE, FT4 #### [facility] [address] [place] [address] Dr. Clara Frye VITAMIN D 25 OHon 09-17-2022 VIT D 25-OH 28.7 ng/mL Normal [facility] Comment on above: Performed By: #### Tresa IZAGUIRRE, FT4 #### [facility] [address] [place] [address] Dr. Clara Frye VIT D RANGES SEE BELOW Normal [facility] Comment on above: Result Comment: <20 ng/mL Vit D deficient 20 - <30 ng/mL Vit D insufficient 30 - 100 ng/mL Vit D sufficient >100 ng/mL Potential Toxicity Performed By: #### Tresa IZAGUIRRE, FT4 #### [facility] [address] [place] [address] Dr. Clara Frye RAD - MISCon 09-02-2022 RAD - MISC [id number]: [address] [facility] Ambulatory Visit Summaryon 0 08-28-2022 Ambulatory Visit [...] Schedule the Following Appointments Follow Up with GLADYS RAHMAN PA-C, URL When: [facility] [address] [facility] [address] Medications What How Much When Instructions Unchanged [...] deck of (more content not included)... Normal [facility] Patient Educationon 08-28-19 23 Patient Education Urology Dietary Guidelines to [...] Rhubarb. ? Beets. ? Potato chips and slovenian fries. ? Nuts. ? If you regularly take a diuretic medicine, make sure to eat at least 1?2 fruits or vegetables high in potassium each day. These include: ? Avocado. ? Banana. ? [place]ita, prune, carrot, or tomato juice. ? Baked [...] Salad dr (more content not included)... Normal [facility] Urology Office/Clinic Noteon 08-28-2022 Urology Office/Clinic Note [...] urinary tract calculi. KUB done 08/28/22 at [facility] shows no visible urinary tract calculi. Last [...] and agrees with plan. Refills sent to [facility]. -cont meds above Follow-up With When Contact Information LACEY JACKSON, GLADYS Farrell, URL [address] [place] [address] Additional Instructions: f/u 1 yr no labs Patient Education Dietary Guidelines to Help Prevent Kidney Stones Documentation recorded by the scribtesfaye Mittal accurately reflects the services(s) I performed and decisions made by me. Authenticated by Gladys Rahman PA-C on 08/28/2022 14:03:18. [employer], personally scribed for PENNY Allison on 08/28/2022 [...] Recorded diphtheria/pertussis,shaquille l/tetanus/polio 1980 Recorded Normal [facility] Comment on above: Result Comment: Elec tronically Signed By: LACEY JACKSON, GLADYS E\.br\Date and Time Signed: 08/28/22 14:03 EST\.br\Electronically Co-Signed By: Minerva Mittal\.br\Date and Time Co-Signed: 08/28/22 13:42 EST XR [...] by: FLIP GATICA Date: 2022-08-28 09:50 Normal [facility] Lab Reportson 05-21-2022 Lab Reports [id number]: [address] [facility] PROF CHEM 8 (BAS METB)on Anion gap [Moles/Vol] 8.1 mmol/L Normal [facility] Comment on above: Performed By: #### B MP #### [facility] [address] [address] Dr. Clara Frye Calcium [Mass/Vol] 9.4 mg/dL Normal 8.5-10.1 [facility] Comment on above: Performed By: #### B MP #### [facility] [address] [address] [address] Clara Frye Chloride [Moles/Vol] 103 mmol/L Normal 98-107 [facility] Comment on above: Performed By: #### B MP #### [facility] [address] [address] [address] Clara Frye CO2 [Moles/Vol] 30.7 mmol/L Normal 21.0-32.[address] [facility] Comment on above: Performed By: #### B MP #### [facility] [address] [address] [address] Clara Frye Creatinine [Mass/Vol] 1.05 mg/dL Critically high 0.55-1.02 [facility] Comment on above: Performed By: #### B MP #### [facility] [address] [place] [address] Dr. Clara Frye EGFR-AF STATELESS >60 Normal >=[address] [facility] Comment on above: Performed By: #### B MP #### [facility] [address] [address] [address] Clara Frye EGFR-NON AF STATELESS 58 mL/min/1.73m2 Critically low >=60 [facility] Comment on above: Performed By: #### B MP #### [facility] [address] [address] [address] Clara Frye Glucose [Mass/Vol] 97 mg/dL Normal 74-106 [facility] Comment on above: Performed By: #### B MP #### [facility] [address] [place] [address] Dr. Clara Frye Potassium [Moles/Vol] 3.8 mmol/L Normal 3.5-5.1 [facility] Comment on above: Performed By: #### B MP #### [facility] [address] [address] [address] Clara Frye Sodium [Moles/Vol] 138 mmol/L Normal 136-145 [facility] Comment on above: Performed By: #### B MP #### [facility] [address] [address] [address] Clara Frye Urea nitrogen [Mass/Vol] 14.0 mg/dL Normal 7.0-18.0 [facility] Comment on above: Performed By: #### B MP #### [facility] [address] [place] [address] Dr. Clara Frye Urea nitrogen/Creatinine [Mass ratio] 13.3 mg/mg Normal [facility] Comment on above: Performed By: #### B MP #### [facility] [address] [address] [address] Clara Frye Vital Signs Date Time Vital Sign Value Performing Clinician Faci lity 05-11-2024 10:27-0400 Body height 170.2 cm Rupinder Caballero [employer] Work Phone: [facility] 05-11-2024 10:27-0400 Body mass index (BMI) [Ratio] 27.75 kg/m2 Rupinder Caballero [employer] Work Phone: [facility] 05-11-2024 10:27-0400 Body temperature 98.01 [degF] Rupinder Caballero [employer]PER[employer] Work Phone: [facility] 05-11-2024 10:27-0400 Body weight 80.38 kg Rupinder Caballero [employer] Work Phone: [facility] 05-11-2024 10:27-0400 Diastolic blood pressure 62 mm[Hg] Rupinder Caballero [employer] Work Phone: [facility] 05-11-2024 10:27-0400 Heart rate 128 /min Rupinder Caballero [employer] Work Phone: [facility] 05-11-2024 10:27-0400 Respiratory rate 16 /min Rupinder Caballero [employer] Work Phone: [facility] 05-11-2024 10:27-0400 SaO2% (BldA) [Mass fraction] 98 % Rupinder Caballero [employer]PER[employer] Work Phone: [facility] 05-11-2024 10:27-0400 Systolic blood pressure 128 mm[Hg] Rupinder Caballero [employer] Work Phone: [facility] 04-13-2024 13:14-0400 Body height 167.6 cm Car Robison MD Work Phone: [facility] 04-13-2024 13:14-0400 Body mass index (BMI) [Ratio] 28.73 kg/m2 Car Robison MD Work Phone: [facility] 04-13-2024 13:14-0400 Body temperature 97.5 [degF] Car Robison MD Work Phone: [facility] 04-13-2024 13:14-0400 Body weight 80.74 kg Car Robison MD Work Phone: [facility] 04-13-2024 13:14-0400 Diastolic blood pressure 58 mm[Hg] Car Robison MD Work Phone: [facility] 04-13-2024 13:14-0400 Heart rate 122 /min Car Robison MD Work Phone: [facility] 04-13-2024 13:14-0400 Respiratory rate 22 /min Car Robison MD Work Phone: [facility] 04-13-2024 13:14-0400 SaO2% (BldA) [Mass fraction] 98 % Car Robison MD Work Phone: [facility] 04-13-2024 13:14-0400 Systolic blood pressure 120 mm[Hg] Car Robison MD Work Phone: [facility] Encounters Encounter Date Encounter Type Care Provider Facility Start: 05-11-2024 End: 05-11-2024 Bamboo flowsheet Rpuinder Caballero [employer] Work Phone: [facility] Start: 05-11-2024 End: 05-11-2024 Bamboo flowsheet Rupinder Caballero [employer]PER[employer] Work Phone: [facility] Start: 05-11-2024 End: 05-11-2024 Office outpatient visit 10 minutes Rupinder Caballero [employer] Work Phone: [facility] Comment on above: Bacterial upper resp iratory infection (Primary Dx); Acute cough Start: 05-11-2024 End: 05-11-2024 ambulatory RUPINDER CABALLERO Not Available Start: 04-13-2024 End: 04-13-2024 ambulatory CAR ROBISON Not Available Start: 04-13-2024 End: 04-13-2024 Office outpatient visit 25 minutes Car Robison MD Work Phone: [facility] Comment on above: Generalized anxiety disorder (CMS/HCC) (Primary Dx); Major depressive disorder, recurrent episode, mild (HCC) (CMS/HCC); Acquired hypothyroidism (CMS/HCC); Stage 3a chronic kidney disease (CKD) (CMS/HCC) Start: 10-09-2023 End: 10-09-2023 ambulatory CAR ROBISON Not Available Start: 10-07-2023 Patient encounter procedure Car Robison MD Work Phone: [facility] Start: 09-03-2023 ambulatory RENETTA Beatty acility:[facility] Start: 06-19-2023 End: 06-19-2023 ambulatory ESTER LABOY Not Available Start: 10-30-[address] CAR ROBISON [facility] ity:[facility] Start: 10-03-2022 End: 10-04-[address] CAR ROBISON Facility:[facility] Start: 09-20-2022 Encounter for genera l adult medical examination without abnormal findings DR CAR ROBISON [facility] Start: 09-17-2022 End: 09-18-[address] CAR ROBISON Facility:[facility] Start: 09-17-2022 End: 09-18-2022 Encounter for general adult medical examination without abnormal findings DR CAR ROBISON Facility:[facility] Start: 08-28-2022 End: 08-29-2022 ambulatory RENETTA RAHMAN Facility:[facility] Start: 08-28-2022 End: 08-28-2022 Patient encounter procedure GLADYS RAHMAN [facility] Start: 08-28-2022 End: 08-29-2022 ambulatory GLADYS RAHMAN [...] for malign ant neoplasm of breast Mammogram [facility] Start: 05-21-2024 End: 05-21-2024 Patient encounter procedure 05/21/2024 11:30 AM EST Office Visit [facility] [address] [place] [address] Car Robison MD [address] [place] [id number] [facility] Start: 05-11-2024 End: 05-11-2025 XR Chest 2 Views XR chest 2 views Imaging Routine Bacterial upper respiratory infection Acute cough Expected: 05/11/2024, Expires: 05/11/2025 [facility] Work Phone: Comment on above: Expected: 05/11/2024 , Expires: 05/11/2025 Start: 05-11-2024 End: 05-11-2024 Patient encounter procedure 05/11/2024 10:30 AM EDT Office Visit [facility] [address] [place] [id number] Rupinder Caballero NP [address] [place] [address] Arrived [facility] Comment on above: Arrived Start: 03-14-2024 Influenza vaccination Influenza Vacc ine (#1) [facility] Start: 2010 Screening for malign ant neoplasm of cervix [facility] Start: 2001 Screening for malign ant neoplasm of cervix Pap Smear [facility] Immunizations Immunization Date Immunization Notes Care Provider Fa cili 05-09-2021 SARS-CoV-2 (COVID-19 ) mRNA-1273 vaccine GLADYS LACEY [facility] 08-09-2020 SARS-CoV-2 (COVID-19 ) mRNA-1273 vaccine GLADYS LACEY [facility] 07-12-2020 SARS-CoV-2 (COVID-19 ) mRNA-1273 vaccine GLADYS LACEY [facility] 04-21-2018 influenza virus vaccine, unspecified formulation GLADYS LACEY [facility] 04-16-2017 influenza virus vaccine, unspecified formulation GLADYS LACEY [facility] 05-06-2016 influenza virus vaccine, unspecified formulation GLADYS LACEY [facility] 06-29-1999 hepatitis B vaccine, pediatric or pediatric/adolescent dosage GLADYS LACEY [facility] 11-15-1998 hepatitis B vaccine, pediatric or pediatric/adolescent dosage GLADYS LACEY [facility] 10-13-1998 hepatitis B vaccine, pediatric or pediatric/adolescent dosage GLADYS LACEY [facility] 10-13-1998 Td(adult) unspecifie d formulation GLADYS LACEY [facility] 08-01-1992 measles, mumps and rubella virus vaccine GLADYS LACEY [facility] 03-04-1986 Diphtheria, tetanus toxoids and acellular pertussis vaccine, and poliovirus vaccine, inactivated GLADYS LACEY [facility] 05-11-1982 Diphtheria, tetanus toxoids and acellular pertussis vaccine, and poliovirus vaccine, inactivated GLADYS LACEY [facility] 02-02-1982 measles, mumps and rubella virus vaccine GLADYS LACEY [facility] 05-13-1981 Diphtheria, tetanus toxoids and acellular pertussis vaccine, and poliovirus vaccine, inactivated GLADYS LACEY [facility] 03-11-1981 Diphtheria, tetanus toxoids and acellular pertussis vaccine, and poliovirus vaccine, inactivated GLADYS LACEY [facility] 1980 Diphtheria, tetanus toxoids and acellular pertussis vaccine, and poliovirus vaccine, inactivated GLADYS LACEY [facility] Payers Date Payer Category Payer Private Health Insurance [id number] 2023 Unknown [employer] [id number] 2023-Present [address] [place] [address] [id number] 2023 Private Health Insurance [id number] 2023 Unknown [id number] 2023 Unknown [id number] 2022 Unknown [id number] 2022 Unknown [id number] 2019 Unknown [id number] 1980 Unknown [id number] 1980 Unknown [id number] 1980 Unknown [id number] .593 1980 Unknown [id number] .593 1980 Unknown [id number] .593 1980 Unknown [id number] .593 1980 Unknown [id number] .593 1980 Unknown [id number] [id number] .9 1980 Unknown [id number] [id number] .9 1980 Unknown [id number] [id number] .9 1980 Unknown [id number] .[id number] 1959 Self-pay Social History Date Type Detail Facility Start: 08-28-2022 End: 06-19-2023 Tobacco smoking status Never smoked tobacco (finding) [facility] Tobacco smoking status Never [facility] Start: 10-08-2023 End: 10-09-2023 Sex Assigned At Female [facility] Start: 06-19-2023 Tobacco use and exposure Smoke less tobacco non-user [facility] Start: 04-13-2024 End: 05-11-2024 Alcoholic beverage intake Current drinker of alcohol (finding) [facility] Start: 10-08-2023 End: 10-09-2023 History of Social function [facility] Do you belong to any clubs or organizations such as jain groups, unions, fraternal or athletic groups, or [...] To some extent [facility] (I/We) worried rosmery er (my/our) food would run out before (I/we) got money to buy more. Never true [facility] Start: 06-08-2023 Alcohol Comment caffeine: 1-2 cups per day [facility] Start: 1980 Sex assigned at Not on file [facility] Functional Status Date Assessment Result Facility 08-28-2022 Functional Status N/A [facility] History of Present illness Narrative 05-11-2024 Rupinder Caballero, DONOVAN - 05/11/2024 11:08 AM EDTami Caballero, DONOVAN - 05/11/2024 10:30 AM EDT Note Date & Type Note Facility 05-11-2024 History of Presen t illness Narrative Associated Problem(s): Bacterial upper respiratory infection Productive cough, chest congestion Started 1 month ago. Did virtual visit, was dx with Bronchitis. Was prescribed doxycycline X7 days. Tessalon Pearles. [place] symptoms improved for one week. Symptoms worsened again. Reports: Productive cough- yellow phlegm Chest congestion Both children have also been ill, dx with walking pneumonia. Has been taking Mucinex and leftover tessalon Pearles. No relief. Lungs clear on auscultation CXR ordered. Augmentin X7 days. Images from the original note were not included. Subjective Patient ID: Herman Moore is a 43 y.o. female who presents for Cough. Cough Pertinent negatives include no chest pain, chills, ear pain, fever, headaches, myalgias, rash, rhinorrhea, sore throat, shortness of breath or wheezing. Productive cough, chest congestion Started 1 month ago. Did virtual visit, was dx with Bronchitis. Was prescribed doxycycline X7 days. Tessalon Pearles. [place] symptoms improved for one week. Symptoms worsened again. Reports: Productive cough- yellow phlegm Chest congestion Denies: Runny nose Fever Shortness of breath Ear pain Sore throat Sinus congestion Both children have also been ill, dx with walking pneumonia. Has been taking Mucinex and leftover tessalon Pearles. No relief. Review of Systems Constitutional: Negative for activity change, appetite change, chills, diaphoresis, fatigue, fever and unexpected weight change. HENT: Negative for congestion, ear pain, rhinorrhea, sinus pressure, sinus pain, sneezing, sore throat, trouble swallowing and voice change. Eyes: Negative for visual disturbance. Respiratory: Positive for cough. Negative for chest tightness, shortness of breath and wheezing. Cardiovascular: Negative for chest pain, palpitations and leg swelling. Gastrointestinal: Negative for abdominal distention, abdominal pain, blood in stool, constipation, diarrhea and vomiting. Genitourinary: Negative for decreased urine volume, dysuria, flank pain, frequency, hematuria and urgency. Musculoskeletal: Negative for arthralgias, gait problem, joint swelling and myalgias. Skin: Negative for rash. Neurological: Negative for dizziness, tremors, syncope, weakness, light-headedness and headaches. Psychiatric/Behavioral: Negative for decreased concentration and suicidal ideas. The patient is not nervous/anxious. Hematological: Does not bruise/bleed easily. Endocrine: Negative for cold intolerance, heat intolerance, polydipsia, polyphagia and polyuria. Objective Physical Exam Vitals reviewed. Constitutional: Appearance: Normal appearance. HENT: Head: Normocephalic and atraumatic. Right Ear: Tympanic membrane normal. Left Ear: Tympanic membrane normal. Nose: Nose normal. Mouth/Throat: Mouth: Mucous membranes are moist. Pharynx: Oropharynx is clear. Eyes: Pupils: Pupils are equal, round, and reactive to light. Cardiovascular: Rate and Rhythm: Normal rate and regular rhythm. Pulses: Normal pulses. Heart sounds: Normal heart sounds. Pulmonary: Effort: Pulmonary effort is normal. Breath sounds: Normal breath sounds. Abdominal: General: Abdomen is flat. Bowel sounds are normal. Palpations: Abdomen is soft. Musculoskeletal: General: Normal range of motion. Cervical back: Normal range of motion. Skin: General: Skin is warm and dry. Capillary Refill: Capillary refill takes less than 2 seconds. Neurological: General: No focal deficit present. Mental Status: She is alert and oriented to person, place, and time. Psychiatric: Mood and Affect: Mood normal. Behavior: Behavior normal. Assessment/Plan Problem List Items Addressed This Visit Cough Relevant Orders XR chest 2 views Bacterial upper respiratory infection - Primary Productive cough, chest congestion Started 1 month ago. Did virtual visit, was dx with Bronchitis. Was prescribed doxycycline X7 days. Tessalon Pearles. [place] symptoms improved for one week. Symptoms worsened again. Reports: Productive cough- yellow phlegm Chest congestion Both children have also been ill, dx with walking pneumonia. Has been taking Mucinex and leftover tessalon Pearles. No relief. Lungs clear on auscultation CXR ordered. Augmentin X7 days. Relevant Medications amoxicillin-clavulanate (Augmentin) 875-125 MG tablet Other Relevant Orders XR chest 2 views documented in this encounter [facility] Instructions 05-11-2024 Patient Instructions Note Date & Type Note Facility 05-11-2024 Instructions Rupinder Caballero NP - 05/11/2024 10:30 AM EDT Have chest Xray completed. Start and finish antibiotics as directed. Continue to rest, drink plenty of fluids, and eat a well-balance diet. Resume normal activity. AVOID anything strenuous until you are feeling better. WORSENING SYMPTOMS, CHEST PAIN, OR SHORTNESS OF BREATH, GO TO THE NEAREST EMERGENCY DEPARTMENT. documented in this encounter [facility] History of Present illness Narrative 04-13-2024 Car Robison MD - 04/13/2024 1:39 PM EDEleni Robison MD - 04/13/2024 1:38 PM EDEleni Robison MD - 04/13/2024 1:38 PM EDTMhaider Robison MD - 04/13/2024 1:38 PM EDT [...] repeat in spring. documented in this encounter [facility] Discharge instructions 08-28-2022 Note Date & [...] include: ?Spinach. ?Rhubarb. ?Beets. ?Potato chips and slovenian fries. ?Nuts. If you regularly take a diuretic medicine, make sure to eat at least 1 2 fruits or vegetables high in potassium each day. These include: ?Avocado. ?Banana. ?[place], prune, carrot, or tomato juice. ?Baked potato. [...] Casseroles. Pizza. Lasagna. Frozen meals. Potato chips. Monegasque fries. Summary You can reduce your risk [...] 2011 Document Revised: 10/20/2019 Document Reviewed: 06/10/2017 [employer] Patient Education 2020 [employer] Follow Up Care 04/24/2021 09:32:24 With:GLADYS RAHMAN PA-C, URL Address: [address] [place] [address] When: Unknown [facility] Evaluation + Plan note Note Date & Type Note Facility Evaluation + Plan note Future Appointments Appointment Date:09/03/2023 01:00:00 PM Scheduled Provider:GLADYS RAHMAN PA-C Location:[facility] Appointment Type:URO Office Visit [facility] Evaluation note Note Date & Type Note Facility Evaluation note Diagnosis Generalized anxiety disorder (CMS/HCC)- Primary Generalized anxiety disorder Major depressive disorder, recurrent episode, mild (HCC) (CMS/HCC) Major depressive disorder, recurrent episode, mild Acquired hypothyroidism (CMS/HCC) Unspecified hypothyroidism Stage 3a chronic kidney disease (CKD) (CMS/HCC) documented in this encounter [facility] Evaluation note Note Date & Type Note Facility Evaluation note Diagnosis Annual physical exam- Primary Routine general medical examination at a health care facility Breast cancer screening by mammogram Generalized anxiety disorder (CMS/HCC)- Primary Generalized anxiety disorder Major depressive disorder, recurrent episode, mild (HCC) (CMS/HCC) Major depressive disorder, recurrent episode, mild Acquired hypothyroidism (CMS/HCC) Unspecified hypothyroidism Stage 3a chronic kidney disease (CKD) (CMS/HCC) Bacterial upper respiratory infection- Primary Acute cough documented in this encounter [facility] Hospital course Narrative Note Date & Type Note Facility Hospital course Narrative No data available for this section [facility] Progress note Note Date & Type Note Facility Progress note No data available for this section [facility] Summary Purpose Family History No Family History Records FoundNo Family History Records FoundNo Family History Records Found Advance Directives No Advanced Directives Records FoundNo Advanced Directives Records FoundNo Advanced Directives Records Found Additional Source Comments Patient Care team informatio n (unrecognized section and content) Guest Services Director Relationship Specialty Start Date End Date Car Robison MD [address] [place] [address] PCP - General Family Medicine 10/09/23 Guest Services Director Relationship Specialty Start Date End Date Car Robison MD [address] [place] [address] PCP - General Family Medicine 10/09/23 Guest Services Director Relationship Specialty Start Date End Date Car Robison MD [address] [place] [address] PCP - General Family Medicine 10/09/23 INFORMATION SOURCE (unrecogn ized section and content) DATE CREATED AUTHOR 09/01/2022 [place] [facility] DATE CREATED AUTHOR AUTHOR'S ORGANIZ ATION 10/19/2022 [facility] DATE CREATED AUTHOR AUTHOR'S ORGANIZ ATION 05/12/2024 [facility] EPIC Reason for Visit (unrecogniz ed section and content) Reason Comments Follow-up 6m Anxiety Wants to talk about welbutrin/ anxiety has been getting worse Reason Comments Cough FOR RECORDS PERTAINING TO PATIENTS WHO ARE [...] BE BASED ON THE PRIMARY CLINICAL RECORDS. [employer] provides no warranty or guarantee of the accuracy or completeness of information in this document.
[2024-05-13 11:53] LABS: Alanine Aminotransferase 52 U/L (14-59); Albumin Globulin Ratio 0.8; Albumin Level 3.4 g/dL (3.4-5.0); Alkaline Phosphatase 87 U/L (46-116); Anion Gap 13.6; Aspartate Amino Transferase 52 U/L (15-37); BUN Creatinine Ratio 5.3; Calcium 9.2 mg/dL (8.5-10.1); Carbon Dioxide 27.5 mmol/L (21.0-32.0); Chloride 99 mmol/L (98-107); Estimated GFR (African America 53 (>=60 mL/min/1.73m^2); Estimated GFR (Non-African Ame 44 (>=60 mL/min/1.73m^2); Globulin 4.4 g/dL; Glucose 127 mg/dL (74-106); Potassium 3.1 mmol/L (3.5-5.1); Sodium 137 mmol/L (136-145); Total Protein 7.8 g/dL (6.4-8.2); Troponin I High Sensitivity <4.0 pg/mL (4.0-51.3)
[2024-05-13] MEDS: ONDANSETRON PF 4 MG/2 ML VIAL IV (12:08)
[2024-05-13 12:48] LABS: Internal Control Within Normal Limits; SARS-CoV-2 Ag NEGATIVE (NEGATIVE)
--- NOTE | 2024-05-13 13:01 | ED.CHESTPAI1 ---
HPI - Chest Pain General Chief Complaint: Chest Pain Stated Complaint: URTI COMPLAINTS/ CHEST PAIN Time Seen by Provider: 05/13/24 11:32 Mode of arrival: walk-in Limitations: no limitations History of Present Illness HPI narrative: Patient here complaining of chest pain. She works from home and she just felt she had pressure in her chest and got very sweaty. Earlier this week she had been placed on the antibiotic Augmentin for respiratory infection. She has not had any nausea vomiting or diarrhea. She did not have any skin rashes. She does not use tobacco products. She has no risk factors for pulmonary embolism. She has not had any swelling pain or discomfort into her legs. She denies any recent travel history. Her spouse is not ill. She has taken several doses of the antibiotic and has not felt improved. Related Data Home Medications ?Medication ?Instructions ?Recorded ?Confirmed amoxicillin 875 mg-potassium 1 tab PO Q12H 05/13/24 05/13/24 clavulanate 125 mg tablet bupropion HCl 150 mg 24 hr tablet, mg PO 05/13/24 extended release bupropion HCl 300 mg 24 hr tablet, mg PO 05/13/24 extended release cholestyramine (with sugar) 4 gram ea 05/13/24 powder for susp in a packet hydrochlorothiazide 25 mg tablet mg 05/13/24 hydroxyzine HCl 10 mg tablet mg 05/13/24 levothyroxine 50 mcg tablet mcg 05/13/24 omeprazole 40 mg capsule,delayed mg 05/13/24 release potassium citrate 10 mEq (1,080 meq PO 05/13/24 mg) tablet,extended release Allergies Allergy/AdvReac Type Severity Reaction Status Date / Time No Known Drug Allergies Allergy Verified 05/13/24 11:00 PFSH PFSH Social History Little interest or pleasure in doing things: not at all Feeling down, depressed, or hopeless: not at all Exam Narrative Exam Narrative: Awake alert very pleasant does have initial sinus tachycardia when she was here. Her skin is moderately clammy. She does have good strong pulses in the upper and lower limbs. I do not believe there is any vascular catastrophe at this time. Her lungs have scattered rhonchi but no rales. There is no pleural or pericardial rub. Heart sounds are tachycardic but no murmurs appreciated. She has no pain swelling redness erythema or ropiness to the lower extremities. Her skin has good tissue perfusion with good capillary fill. Neurological examination is normal with no focal neurological complaints or findings. Constitutional Vital Signs, click to edit/add: Last Vital Signs Temp 98.3 F 05/13/24 10:56 Pulse 114 H 05/13/24 12:10 Resp 19 05/13/24 12:10 BP 125/89 05/13/24 12:10 Pulse Ox 96 05/13/24 12:10 O2 Del Method Room Air 05/13/24 10:56 Course Vital Signs Vital signs: Vital Signs Temperature 98.3 F 05/13/24 10:56 Pulse Rate 139 H 05/13/24 10:56 Respiratory Rate 20 05/13/24 10:56 Blood Pressure 160/112 H 05/13/24 10:56 Pulse Oximetry 96 05/13/24 10:56 Oxygen Delivery Method Room Air 05/13/24 10:56 Temperature 98.3 F 05/13/24 10:56 Pulse Rate 114 H 05/13/24 12:10 Respiratory Rate 19 05/13/24 12:10 Blood Pressure 125/89 05/13/24 12:10 Pulse Oximetry 96 05/13/24 12:10 Oxygen Delivery Method Room Air 05/13/24 10:56 MDM - Chest Pain MDM Narrative Medical decision making narrative: This patient presents with respiratory symptomatology increasing chest pain and some minor shortness of breath. She is not getting better with Augmentin. Her heart rate is quite elevated. Her D-dimer is also elevated. A CTA was ordered and shows no central pulmonary artery embolism but it does show right basilar lobe pneumonia. Her heart rate improved while here in the ER. Findings were discussed with her. She is to continue taking her Augmentin and also start azithromycin. She has no immunocompromising disorders. Her COVID test was negative here as well Lab Data Labs: Lab Results 05/13/24 05/13/24 Range/Units 11:25 12:31 WBC 10.7 (4.0-11.0) 10^3/uL RBC 4.63 (4.20-5.40) 10^6/uL Hgb 14.8 (12.0-16.0) g/dL Hct 41.4 (36.0-48.0) % MCV 89.4 (81.0-99.0) fL MCH 32.0 (26.7-34.0) pg MCHC 35.7 H (29.9-35.2) g/dL RDW 11.8 (11.0-15.0) % Plt Count 257 (150-450) 10^3/uL MPV 8.5 L (9.5-13.5) fL Neut % (Auto) 77.3 H (43.0-75.0) % Lymph % (Auto) 11.8 L (20.5-60.0) % [place] % (Auto) 9.0 (1.7-12.0) % Eos % (Auto) 1.1 (0.9-7.0) % Baso % (Auto) 0.5 (0.2-2.0) % Neut # (Auto) 8.3 H (1.4-6.5) 10^3/uL Lymph # (Auto) 1.3 (1.2-3.8) 10^3/uL [place] # (Auto) 1.0 H (0.3-0.8) 10^3/uL Eos # (Auto) 0.1 (0.0-0.7) 10^3/uL Baso # (Auto) 0.1 (0.0-0.1) 10^3/uL Abs Immat Gran (auto) 0.03 (0.00-0.03) 10^3/uL Imm/Tot Granulo (auto) 0.3 (0.0-0.5) % D-Dimer 2.70 H* (<=0.59) mg/L FEU Sodium 137 (136-145) mmol/L Potassium 3.1 L (3.5-5.1) mmol/L Chloride 99 (98-107) mmol/L Carbon Dioxide 27.5 (21.0-32.0) mmol/L Anion Gap 13.6 BUN 7.0 (7.0-18.0) mg/dL Creatinine 1.33 H (0.55-1.02) mg/dL Est GFR ( Amer) 53 L (>=60 mL/min/1.73m^2) Est GFR (Non-Af Amer) 44 L (>=60 mL/min/1.73m^2) BUN/Creatinine Ratio 5.3 Glucose 127 H (74-106) mg/dL Calcium 9.2 (8.5-10.1) mg/dL Total Bilirubin 1.0 (0.2-1.0) mg/dL AST 52 H (15-37) U/L ALT 52 (14-59) U/L Alkaline Phosphatase 87 (46-116) U/L Troponin I High Sens <4.0 L (4.0-51.3) pg/mL Total Protein 7.8 (6.4-8.2) g/dL Albumin 3.4 (3.4-5.0) g/dL Globulin 4.4 g/dL Albumin/Globulin Ratio 0.8 SARS-CoV-2 Ag (CV2AG) Negative (NEGATIVE) Discharge Plan Discharge Chief Complaint: Chest Pain Clinical Impression: Pneumonia involving right lung Patient Disposition: Home, Self-Care Time of Disposition Decision: 13:05 Prescriptions / Home Meds: No Action amoxicillin-pot clavulanate 875-125 mg tablet 1 tab PO Q12H omeprazole 40 mg capsule,delayed release(DR/EC) potassium citrate 10 mEq (1,080 mg) tablet extended release PO levothyroxine 50 mcg tablet hydrochlorothiazide 25 mg tablet hydroxyzine HCl 10 mg tablet cholestyramine (with sugar) 4 gram powder in packet bupropion HCl 300 mg tablet extended release 24 hr PO bupropion HCl 150 mg tablet extended release 24 hr PO Print Language: Turkish Additional Instructions: Continue Augmentin but start Z-Robert as well. Return if you have decreasing pulse oximetry or increased respiratory distress Referrals: Car Drummond MD [Primary Care Provider] - 1 week
== END 2024-05-13 13:32 | disposition home or self-care (01) ==
PROVIDERS: Emergency Provider Emergency Medicine Emergency Medical Services; PCP Family Medicine
DX: J18.9 Pneumonia, unspecified organism (principal); R79.89 Other specified abnormal findings of blood chemistry
CPT/HCPCS: 36415; 71275; 80053; 84484; 85025; 85378; 87811; 93005; 96374; 96375; 99285; J2270; J2405; Q9967